=== PATIENT | female | born 1960 | race Caucasian/White ===

== ENCOUNTER → 2018-01-08 | Outpatient (CLI) | payer OTHER ==
[~2018-01-08] MED LIST: AMOX-358 PO; ASPI-586 PO; LEVO88TA54 PO; TRAM50TA2 PO
--- NOTE | 2018-01-08 14:25 | Diagnostic Imaging Report ---
INDICATION: Shortness of breath x2 months. Increasing severity. TECHNIQUE: Two view chest 02:39 p.m. CORRELATION STUDY: 02/25/2012. FINDINGS: The heart size, mediastinal configuration and pulmonary vasculature are within normal limits. Lung vásquez are hyperinflated with flattening of the diaphragms increased in retrosternal dimension. No infiltrate. Visualized osseous structures are unremarkable. IMPRESSION: 1. Hyperinflated lung vásquez. Negative for acute abnormality. Dictated by: Dictated on workstation # [id number]
== END ==
LOC: RAD 14:07
PROVIDERS: ATTEND Nurse Practitioner
DX: R06.02 Shortness of breath (principal); R91.8 Other nonspecific abnormal finding of lung field
CPT/HCPCS: 71046

== ENCOUNTER 2018-08-29 23:15 | Emergency (ER) | payer BC, OTHER ==
[~2018-08-29] VITALS: Ht 162.6 cm; Wt 41.7 kg
--- NOTE | 2018-08-30 00:10 | NUR ---
i have not got pt out of w/r yet. says tell pt we be glad to see you but we have no u/s or way to tell if you have a blood clot or not. i will do that when i get pt now.
--- NOTE | 2018-08-30 00:14 | NUR ---
pt here with " ". pt alert gcs 15. pt thinks she has blood clot traveling down left medial lower leg. been going on x 2 days. pt has areas marked with a pen. it appears its traveling down what appears to be a large vericose vein. pt c/o pain left leg 5-10. pt said she wants seen after i said what dr said. pt has h/o bllod clots and is on low dose asa daily.pt denies dyspnea and no acute sigh sof dyspnea noted. lungs equal cta bilaterally. pt denies injury. pt denies calf pain and calf area appears wnl andno pain there either. pt just has pain down the vein. positive pulse but weak left foot and both legs equally cool to touch. pt denies chest pain. done riley villatoro at 0022.
[2018-08-30] MEDS ORDERED: KETOROLAC 30 MG/ML VIAL ONE (00:40)
--- NOTE | 2018-08-30 00:48 | ED Lower Extremity ---
General Chief Complaint: Lower Extremity Stated Complaint: LEFT LEG BLOOD CLOTT Nursing Triage Note: leg pain x 2 days thinks she has a blood clot. Nursing Sepsis Screen: No Definite Risk Allergies and Home Medications Allergies Coded Allergies: No Known Drug Allergies (Unverified , 01/27/16) Home Medications Amoxicillin/Potassium Clav 1 Each Tablet, 1 EACH PO BID Prescribed by: CHRISTOPHE WEEKS on 01/27/162300 Aspirin 81 Mg Tablet.dr, 81 MG PO DAILY, (Reported) Levothyroxine Sodium 88 Mcg Tablet, 88 MCG PO DAILY, (Reported) Tramadol HCl 50 Mg Tablet, 50-100 MG PO Q6H PRN for PAIN Prescribed by: CHRISTOPHE WEEKS on 01/27/162300 Past Jxctntt-Wbesxx-Ynnmsx Hx Patient Social History Alcohol Use: Denies Use Recreational Drug Use: No Recent Foreign Travel: No Contact w/Someone Who Travel: No Recent Infectious Disease Expo: No Recent Hopitalizations: No Physical Abuse: No Sexual Abuse: No Past Medical History Hypothyroidsim Physical Exam Vital Signs Vital Signs - First Documented 08/30/18 00:14 Temp 98.1 Pulse 76 Resp 16 B/P (MAP) 115/61 (79) Pulse Ox 96 O2 Delivery Room Air Capillary Refill : Less Than 3 Seconds Height, Weight, BMI Height: 5'4.00" Weight: 92lbs. oz. 41.166273ma; BMI Method:Stated Progress/Results/Core Measures Results/Orders Vital Signs/I&O 08/30/18 00:14 Temp 98.1 Pulse 76 Resp 16 B/P (MAP) 115/61 (79) Pulse Ox 96 O2 Delivery Room Air Blood Pressure Mean: 79 Departure Impression Primary Impression: Left leg pain Additional Impressions: POSSIBLE THROMBOPHLEBITIS VARICOSE VEINS Disposition: HOME, SELF-CARE Condition: Stable Departure-Patient Inst. Referrals: THIERNO CURIEL MD (PCP/Family) Primary Care Physician Patient Instructions: Deep Vein Thrombosis (Blood Clots in the Legs) (DC) Add. Discharge Instructions: MOIST HEAT TO AREA AT 20 MINUTE INTERVALS INCREASE YOUR ASPIRIN TO 324 MG A DAY GO TO [facility] OR [facility] FOR FURTHER EVALUATION All discharge instructions reviewed with patient and/or family. Voiced understanding. ELIEL MANZANO DO Aug 30, 2018 00:48
[2018-08-30 00:54] VITALS: BP 0/0
--- NOTE | 2018-08-30 01:41 | NUR ---
someone else d/cd pt . i am merely doing the computer part of d/c.
--- NOTE | 2018-08-30 01:42 | NUR ---
i do not know if they did d/c vs
== END 2018-08-30 00:54 | disposition home or self-care (01) ==
LOC: EDUNIT# 23:15 → ER 23:18
DX: I83.92 Asymptomatic varicose veins of left lower extremity (principal); E03.9 Hypothyroidism, unspecified; Z79.01 Long term (current) use of anticoagulants
CPT/HCPCS: 99282

== ENCOUNTER → 2018-09-01 | Outpatient (CLI) | payer BC ==
--- NOTE | 2018-09-01 15:21 | Diagnostic Imaging Report ---
PROCEDURE: US left lower extremity venous. TECHNIQUE: Multiple real-time grayscale images were obtained over the left lower extremity in various projections. Additional duplex Doppler and color Doppler images were also obtained. INDICATION: Lump and pain in the medial left calf. FINDINGS: There is no evidence of left lower extremity DVT. Left lower extremity deep venous system shows normal compressibility with normal response to augmentation and Valsalva. There is a thrombosed superficial vein in the medial left calf at the area of palpable abnormality consistent with superficial thrombophlebitis. IMPRESSION: 1. No evidence of left lower extremity DVT. 2. Superficial thrombophlebitis medial left calf. Dictated by: Dictated on workstation # [id number]
== END ==
LOC: RAD 12:29
PROVIDERS: ATTEND Nurse Practitioner
DX: I80.02 Phlebitis and thrombophlebitis of superficial vessels of left lower extremity (principal)

== ENCOUNTER → 2018-10-30 | Outpatient (CLI) | payer BC ==
--- NOTE | 2018-10-30 13:27 | Diagnostic Imaging Report ---
Indication: Routine screening. Comparison is made with prior mammogram from 03/19/2008. 2-D and 3-D bilateral screening mammography was performed with CAD. Both breasts are heterogeneously dense, limiting the sensitivity of mammography. Breasts are smaller bilaterally, perhaps owing to prior breast reduction surgery. Clip in the outer left breast is again noted. There are benign calcifications bilaterally. No spiculated mass or malignant appearing microcalcifications are seen. Axillae are unremarkable. Impression: BI-RADS category 2 No mammographic features suspicious for malignancy are identified. ACR BI-RADS Category 2: Benign findings. Result letter will be mailed to the patient. Note: At least 10% of breast cancer is not imaged by mammography. Dictated by: Dictated on workstation # [id number]
== END ==
LOC: RAD 10:22
PROVIDERS: ATTEND Internal Medicine
DX: Z12.31 Encounter for screening mammogram for malignant neoplasm of breast (principal); Z98.890 Other specified postprocedural states
CPT/HCPCS: 77067

== ENCOUNTER → 2020-11-10 | Outpatient (CLI) | payer BC ==
[~2020-11-10] MED LIST changes: -TRAM50TA2 PO; +TRM50T PO
== END ==
LOC: LABNPT 08:54
PROVIDERS: ATTEND Internal Medicine
DX: Z20.822 Contact with and (suspected) exposure to COVID-19 (principal)
CPT/HCPCS: 87636

== ENCOUNTER → 2020-12-06 | Outpatient (CLI) | payer BC ==
--- NOTE | 2020-12-06 16:47 | Diagnostic Imaging Report ---
INDICATION: Routine screening. COMPARISON: 10/30/2018. TECHNIQUE: 2D and 3D bilateral screening mammography was performed with CAD. FINDINGS: Both breasts are heterogeneously dense, limiting the sensitivity of mammography. The parenchymal pattern appears stable. There are benign calcifications present. There Is a clip in the lateral left breast. No mass or malignant-appearing microcalcifications are seen. The axillae are unremarkable. IMPRESSION: No mammographic features suspicious for malignancy are identified. ACR BI-RADS Category 2: Benign findings. Result letter will be mailed to the patient. Note: At least 10% of breast cancer is not imaged by mammography. Dictated by: Dictated on workstation # [id number]
== END ==
LOC: RAD 12:45
PROVIDERS: ATTEND Nurse Practitioner Family
DX: Z12.31 Encounter for screening mammogram for malignant neoplasm of breast (principal); F17.200 Nicotine dependence, unspecified, uncomplicated
CPT/HCPCS: 77063; 77067

== ENCOUNTER → 2021-01-05 | Outpatient (CLI) | payer BC ==
[~2021-01-05] VITALS: Ht 160 cm; Wt 35.6 kg
[~2021-01-05] MED LIST changes: +ASPI-1238 PO; +LEVO88CA4 PO
== END | disposition home or self-care (01) ==
LOC: PREOP 10:20
PROVIDERS: ATTEND Surgery
DX: Z01.818 Encounter for other preprocedural examination (principal)

== ENCOUNTER 2021-01-06 11:37 | Day surgery (SDC) | payer BC ==
[2021-01-06] VITALS (14 sets, daily range): BP systolic 101–129; BP diastolic 50–60
[~2021-01-06] VITALS: Ht 130 cm; Wt 35.6 kg
[2021-01-06] MEDS ORDERED: NS IV 500 ML 500 ML ONE (11:51)
[2021-01-06] MEDS ORDERED: LIDOCAINE JELLY 2% 6 ML SYRINGE MM PRN (12:00)
[2021-01-06] MEDS ORDERED: NS IV 500 ML 500 ML IV PRN (12:00)
[2021-01-06] MEDS ORDERED: MIDAZOLAM 5 MG/5 ML (VERSED) VIAL IV ONE (12:00)
[2021-01-06] MEDS ORDERED: fentaNYL INJ 100 MCG/2 ML AMP IVP ONE (12:00)
--- NOTE | 2021-01-06 12:28 | Progress Note-Pre Operative ---
Pre-Operative Progress Note H&P Reviewed The H&P was reviewed, patient examined and no changes noted. Date Seen by Provider: Jan 06, 2021 Time Seen by Provider: 12:00 Date H&P Reviewed: Jan 06, 2021 Time H&P Reviewed: 12:00 Pre-Operative Diagnosis: screening, +cologaurd NICOLA CAROLINA MD Jan 06, 2021 12:28
--- NOTE | 2021-01-06 12:28 | Conscious Sedation/ASA ---
Conscious Sedation Pre-Proced Time 12:00 ASA Score 2 For ASA 3 and 4: Consider anesthesia and medical clearance. Also, for patients with a history of failed moderate sedation consider anesthesia. Airway Lungs Heart ASA score ASA 1: a normal healthy patient ASA 2: a patient with a mild systemic disease (mid diabetes, controlled hypertension, obesity ASA 3: a patient with a severe systemic disease that limits activity (angina, COPD, prior Myocardial infarction) ASA 4: a patient with an incapacitating disease that is a constant threat to life (CHF, renal failure) ASA 5: a moribund patient not expected to survive 24 hrs. (ruptured aneurysm) ASA 6: a declared brain- patient whose organs are being harvested. For emergent operations, add the letter E after the classification Mallampati Classification Grade 2 Sedation Plan Analgesia, Amnesia, Plan communicated to team members, Discussed options with patient/fam, Discussed risks with patient/fam The patient is an appropriate candidate to undergo the planned procedure, sedation, and anesthesia. The patient immediately re-assessed prior to indication. NICOLA CAROLINA MD Jan 06, 2021 12:28
--- NOTE | 2021-01-06 12:29 | Discharge Inst-Surgical ---
D/C Lap Instructions-GE Follow Up Appt in 2 weeks Activity as tolerated High Fiber Diet 25g or more per day Avoid Alcohol, Caffeine, Spicy [place] and Acid foods. Drink 64 fluid oz or more of fluids per day. Symptoms to Report: Fever over 101 degree F, Nausea/Vomiting If any problems/questions: Contact your physician or go to Emergency Room NICOLA CAROLINA MD Jan 06, 2021 12:29
--- NOTE | 2021-01-06 13:48 | Progress Note-Post Operative ---
Post-Operative Progess Note Surgeon (s)/Supply Chain Logistics Manager (s) Surgeon NICOLA CAROLINA MD Supply Chain Logistics Manager: none Pre-Operative Diagnosis screening, +cologaurd Post-Operative Diagnosis chronic stage 2 ext and int hemorrhoids. Procedure & Operative Findings Date of Procedure 01/06/21 Procedure Performed/Findings colonoscopy Anesthesia Type cs Estimated Blood Loss Estimated blood loss (mL): minimal Specimens/Packing Specimens Removed none NICOLA CAROLINA MD Jan 06, 2021 13:48
--- NOTE | 2021-01-06 22:52 | OPERATIVE REPORT ---
DATE OF SERVICE: 01/06/2021 ATTENDING PRIMARY CARE PHYSICIAN: Isidoro Mi MD PREOPERATIVE DIAGNOSIS: Screening colonoscopy with positive Cologuard test. POSTOPERATIVE DIAGNOSIS: Chronic stage II external and internal hemorrhoids. Remainder of the rectum and colon was normal. PROCEDURE: Colonoscopy. SURGEON: Nicola Carolina MD. ANESTHESIA: Conscious sedation. ESTIMATED BLOOD LOSS: Minimal. FINDINGS: Chronic stage II external and internal hemorrhoids. Remainder of the rectum and colon was normal. DISPOSITION: The patient tolerated the procedure well. INDICATIONS: The patient is a 60-year-old female referred over to us for a screening colonoscopy. She has not had a colonoscopy up to this point in her life. She did have a recent Cologuard test, which did come back positive. She states no visible red blood per rectum nor any dark tarry stools. She states that she does have occasional episodes of constipation. She does not report any family history of colon cancer. DESCRIPTION OF PROCEDURE: The patient was brought to the endoscopy suite, laid in the left lateral decubitus position. After adequate IV pain and sedative medications and conscious sedation anesthesia, a digital rectal examination was performed. There was a stage II chronic external and internal hemorrhoids, not actively edematous nor inflamed and no bleeding. Normal sphincter tone was felt and there were no palpable masses. The endoscope was then intubated into the anus and the rectum gently insufflated. The endoscope was then advanced through the valves of Simmons of the rectum with no polyps or any neoplasms identified. Through the sigmoid colon, no diverticulosis identified. The endoscope was then advanced and remainder of the descending, transverse and ascending colon to the cecum, which appeared normal with no polyps or any neoplasms identified. The endoscope was then slowly withdrawn while taking a second look and suctioning of residual air with no additional findings. The patient tolerated the procedure well. We will recommend the necessary lifestyle and diet accommodation including the incorporation of a high-fiber diet with a fiber supplement, which should equal or exceed 25 grams daily as well as significant amounts of water to promote soft stools on a daily basis. If she is asymptomatic, she does not need another colonoscopy for another 10 years. Job ID: [id number] DocumentID: [id number] Dictated Date: 01/06/2021 13:44:02 Digital Marketing Project Manager Date: 01/06/2021 22:51:49 Dictated By: NICOLA CAROLINA MD
== END 2021-01-06 14:30 | disposition home or self-care (01) ==
LOC: ENDO 11:37
PROVIDERS: ATTEND Surgery
DX: R19.5 Other fecal abnormalities (principal); J44.9 Chronic obstructive pulmonary disease, unspecified; E03.9 Hypothyroidism, unspecified; F17.210 Nicotine dependence, cigarettes, uncomplicated; K64.1 Second degree hemorrhoids; Z79.82 Long term (current) use of aspirin; Z79.890 Hormone replacement therapy

== ENCOUNTER 2022-03-06 08:49 | Observation (INO) | payer BC, OTHER ==
[~2022-03-06] VITALS: Ht 162 cm; Wt 40.5 kg
[2022-03-06] MEDS ORDERED: NS IV 500 ML 500 ML IV STA (08:58)
[2022-03-06] MEDS ORDERED: morphine INJ 10 MG/ML 1ML (SYR OR VIAL) IVP STA ×2 (08:58→09:25)
--- NOTE | 2022-03-06 08:58 | ED Respiratory ---
General Chief Complaint: Respiratory Problems Stated Complaint: SOA Source: patient Exam Limitations: no limitations History of Present Illness Date Seen by Provider: Mar 06, 2022 Time Seen by Provider: 08:54 Initial Comments Patient is a 61-year-old female history of COPD, not on home oxygen who presents to the emergency room with sudden onset of shortness of breath when she woke up this morning at around 7 AM. Patient has a slightly productive cough. Reports no fevers or chills. No known flu or COVID positive contacts. She is COVID vaccinated, not fully vaccinated. Denies chest pain, nausea vomiting. No problems with bowel or bladder. Has used multiple rounds of her albuterol at home prior to arrival. Moderate to severe distress with 2 word dyspnea. Room air sats 90%. Obvious increased work of breathing. Patient does wish to be intubated should that become necessary. No complaints of chest pain. Timing/Duration: this morning (0700) Severity: severe Prior Episodes/Possible Cause: occasional episodes Modifying Factors: Improves With Albuterol Inhaler, Improves With Albuterol Nebulizer Associated Symptoms: cough, shortness of breath Allergies and Home Medications Allergies Coded Allergies: No Known Drug Allergies (Unverified , 01/27/16) Patient Home Medication List Home Medication List Reviewed: Yes Aspirin (Aspirin EC) 81 Mg Tablet.dr, 81 MG PO DAILY, (Reported) Entered as Reported by: BARB MORTENSEN on 01/05/21 1357 Levothyroxine Sodium (Levothyroxine) 88 Mcg Capsule, 88 MCG PO DAILY, (Reported) Entered as Reported by: BARB MORTENSEN on 01/05/21 3157 Review of Systems Review of Systems Constitutional: see HPI EENTM: no symptoms reported Respiratory: cough, short of breath, wheezing Cardiovascular: no symptoms reported Gastrointestinal: no symptoms reported Genitourinary: no symptoms reported Musculoskeletal: no symptoms reported Skin: no symptoms reported All Other Systems Reviewed Negative Unless Noted: Yes Past Dajidwg-Kmzjhf-Ffjdgr Hx Immunizations Up To Date First/Initial COVID19 Vaccinat: 05/02/2020 Second COVID19 Vaccination [place]: 05/22/2020 Third COVID19 Vaccination Date: 05/02/2020 Seasonal Allergies Seasonal Allergies: No Past Medical History Surgeries: Yes (VARICOSE VEINS STRIPPED, R ARM ORIF) Orthopedic Respiratory: Yes COPD Cardiac: Yes (VARICOSE VEINS, THROMBOPHLEBITIS--IS UNCLEAR IF SUPERFICIAL OR DEEP ) Neurological: No Genitourinary: No Gastrointestinal: No Musculoskeletal: No Endocrine: Yes Hypothyroidsim Cancer: No Psychosocial: No Integumentary: No Blood Disorders: No Physical Exam Vital Signs - First Documented 03/06/22 08:52 Temp 35.1 Pulse 86 Resp 30 B/P (MAP) 167/80 (109) Pulse Ox 96 O2 Delivery OxyMask O2 Flow Rate 6.00 Capillary Refill : Height: 5'4.00" Weight: 92lbs. oz. 41.724163xo; 21.06 BMI Method:Stated General Appearance: moderate distress, thin Eyes: Bilateral Eye Normal Inspection, Bilateral Eye PERRL, Bilateral Eye EOMI HEENT: PERRL/EOMI Neck: normal inspection Respiratory: respiratory distress, decreased breath sounds, accessory muscle use, rhonchi (throughout; no active wheezing) Cardiovascular: regular rate, rhythm, other (2+ radial pulses) Extremities: normal range of motion, non-tender, normal inspection, no pedal edema, normal capillary refill Neurologic/Psychiatric: alert, normal mood/affect, oriented x 3 Skin: normal color, warm/dry Focused Exam Lactate Level 03/06/22 09:00: Lactic Acid Level 1.28 Lactic Acid Level Laboratory Tests Test 03/06/22 09:00 Lactic Acid Level 1.28 MMOL/L (0.50-2.00) Progress/Results/Core Measures Suspected Sepsis SIRS Temperature: Pulse: Respiratory Rate: Laboratory Tests 03/06/22 09:00: White Blood Count 9.1 Blood Pressure / Mean: 03/06/22 09:00: Lactic Acid Level 1.28 Laboratory Tests 03/06/22 09:00: Creatinine 0.75, INR Comment 0.9, Platelet Count 256, Total Bilirubin 0.4 Results/Orders Lab Results Laboratory Tests Test 03/06/22 09:00 03/06/22 09:05 03/06/22 09:10 Range/Units White Blood Count 9.1 4.3-11.0 10^3/uL Red Blood Count 4.63 3.80-5.11 10^6/uL Hemoglobin 14.8 11.5-16.0 g/dL Hematocrit 44 35-52 % Mean Corpuscular Volume 95 80-99 fL Mean Corpuscular Hemoglobin 32 25-34 pg Mean Corpuscular Hemoglobin Concent 34 32-36 g/dL Red Cell Distribution Width 14.1 10.0-14.5 % Platelet Count 256 130-400 10^3/uL Mean Platelet Volume 10.3 9.0-12.2 fL Immature Granulocyte % (Auto) 0 % Neutrophils (%) (Auto) 40 L 42-75 % Lymphocytes (%) (Auto) 43 12-44 % Monocytes (%) (Auto) 8 0-12 % Eosinophils (%) (Auto) 8 0-10 % Basophils (%) (Auto) 1 0-10 % Neutrophils # (Auto) 3.6 1.8-7.8 10^3/uL Lymphocytes # (Auto) 3.9 1.0-4.0 10^3/uL Monocytes # (Auto) 0.7 0.0-1.0 10^3/uL Eosinophils # (Auto) 0.7 H 0.0-0.3 10^3/uL Basophils # (Auto) 0.1 0.0-0.1 10^3/uL Immature Granulocyte # (Auto) 0.0 0.0-0.1 10^3/uL Prothrombin Time 12.8 12.2-14.7 SEC INR Comment 0.9 0.8-1.4 Activated Partial Thromboplast Time 27 24-35 SEC Sodium Level 143 135-145 MMOL/L Potassium Level 4.0 3.6-5.0 MMOL/L Chloride Level 104 98-107 MMOL/L Carbon Dioxide Level 29 21-32 MMOL/L Anion Gap 10 5-14 MMOL/L Blood Urea Nitrogen 13 7-18 MG/DL Creatinine 0.75 0.60-1.30 MG/DL Estimat Glomerular Filtration Rate 91 BUN/Creatinine Ratio 17 Glucose Level 86 70-105 MG/DL Lactic Acid Level 1.28 0.50-2.00 MMOL/L Calcium Level 9.2 8.5-10.1 MG/DL Corrected Calcium 9.3 8.5-10.1 MG/DL Total Bilirubin 0.4 0.1-1.0 MG/DL Aspartate Amino Transf (AST/SGOT) 22 5-34 U/L Alanine Aminotransferase (ALT/SGPT) 22 0-55 U/L Alkaline Phosphatase 72 40-136 U/L Total Protein 6.6 6.4-8.2 GM/DL Albumin 3.9 3.2-4.5 GM/DL Influenza Type A (RT-PCR) Not Detected Not Detecte Influenza Type B (RT-PCR) Not Detected Not Detecte SARS-CoV-2 RNA (RT-PCR) Not Detected Not Detecte Blood Gas Puncture Site RR Blood Gas Patient Temperature 35.1 Arterial Blood pH 7.42 7.37-7.43 Arterial Blood Partial Pressure CO2 44 35-45 MMHG Arterial Blood Partial Pressure O2 123 H 79-93 MMHG Arterial Blood HCO3 29 H 23-27 MMOL/L Arterial Blood Total CO2 30.1 21.0-31.0 MMOL/L Arterial Blood Oxygen Saturation 99 94-100 % Arterial Blood Base Excess 4.0 H -2.5-2.5 MMOL/L Elfego Test YES-POS Blood Gas Ventilator Setting NO Blood Gas Inspired Oxygen 5L My Orders Orders - SANDRA ROJAS MD Cbc With Automated Diff (03/06/22 08:58) Comprehensive Metabolic Panel (03/06/22 08:58) Blood Culture (03/06/22 08:58) Sputum Culture (03/06/22 08:58) Urinalysis (03/06/22 08:58) Urine Culture (03/06/22 08:58) Protime With Inr (03/06/22 08:58) Partial Thromboplastin Time (03/06/22 08:58) Chest 1 View, Ap/Pa Only (03/06/22 08:58) Ed Iv/Invasive Line Start (03/06/22 08:58) Ed Iv/Invasive Line Start (03/06/22 08:58) Vital Signs Adult Sepsis Patie Q15M (03/06/22 08:58) O2 (03/06/22 08:58) Remove Rings In Anticipation O (03/06/22 08:58) Lactic Acid Analyzer (03/06/22 08:58) Arterial Blood Gas (03/06/22 08:58) Communication For Respiratory (03/06/22 08:58) Covid 19 Inhouse Test (03/06/22 08:58) Influenza A And B By Pcr (03/06/22 08:58) Isolation Central Supply Req (03/06/22 08:58) Methylprednisolone Sod Succ (Solu-Medrol (03/06/22 09:00) Morphine Injection (Morphine Injection (03/06/22 08:58) Ns Iv 500 Ml (Sodium Chloride 0.9%) (03/06/22 08:58) Ondansetron Injection (Zofran Injectio (03/06/22 09:00) Albuterol/Ipra Inhalation Soln (Duoneb I (03/06/22 09:00) Svn Small Volume Nebulizer (03/06/22 08:58) Morphine Injection (Morphine Injection (03/06/22 09:25) Ceftriaxone 1 Gm Pre-Mix (Rocephin 1 Gm (03/06/22 12:00) Medications Given in ED Current Medications Medications Dose Ordered Sig/Mayte Route Start Time Stop Time Status Last Admin Dose Admin Albuterol/ Ipratropium 3 ml ONCE ONCE INH 03/06/22 09:00 03/06/22 09:02 DC 03/06/22 09:16 3 ML Ceftriaxone Sodium/Dextrose 50 ml @ 100 mls/hr ONCE ONCE IV 03/06/22 12:00 03/06/22 12:29 DC 03/06/22 12:11 100 MLS/HR Methylprednisolone Sodium Succinate 125 mg ONCE ONCE IVP 03/06/22 09:00 03/06/22 09:01 DC 03/06/22 09:31 125 MG Ondansetron HCl 4 mg ONCE ONCE IVP 03/06/22 09:00 03/06/22 09:01 DC 03/06/22 09:32 4 MG Vital Signs/I&O 03/06/22 03/06/22 03/06/22 08:52 09:16 09:35 Temp 35.1 Pulse 86 75 Resp 30 24 B/P (MAP) 167/80 (109) Pulse Ox 96 100 99 O2 Delivery OxyMask OxyMask O2 Flow Rate 6.00 8.00 40.00 Capillary Refill : Progress Note : Time: 12:32 Progress Note Patient seen initially with moderate to severe respiratory distress, 2 word dyspnea room air oxygen saturations 89/90%. Evaluation today includes septic work-up with ABG. Patient is found to have what looks like a right middle lobe early infiltrate. She was placed on BiPAP with morphine for air hunger. She was reevaluated at approximately 1025, moving more air feeling better. Advised her that we would continue to watch her for another 30 minutes and then possibly remove the BiPAP. She continued to improve. I reassessed her again at 1130 and her oxygen saturations slowly decreased down to about 87. She was no longer dyspneic with conversation. Definitely moving more air still with occasional rhonchi and some expiratory wheezes in the posterior lower lobes. Due to new need for oxygen and underlying COPD discussed admission with IV antibiotics and breathing treatments with the patient. She is agreeable. Her daughter is at the bedside. All questions are sought and answered. Diagnostic Imaging Diagonstic Imaging: Xray Plain Films/CT/US/NM/MRI: chest Comments [facility] [place], [place] NAME: APRIL BRIGGS [facility] REC#: [id number] PT STATUS: REG ER : 1960 PHYSICIAN: SANDRA ROJAS MD ADMIT DATE: 03/06/22/ER Draft Date of Exam:03/06/22 CHEST 1 VIEW, AP/PA ONLY EXAMINATION: CHEST 1 VIEW, AP/PA ONLY. INDICATION: Shortness of breath. COMPARISON: 01/08/2018. FINDINGS: Stable hyperinflated lungs. Hazy opacities in the medial aspect of the right lung base have developed. No pleural effusion or pneumothorax. Normal cardiomediastinal silhouette. IMPRESSION: 1. Medial right basilar pulmonary opacities are suspicious for pneumonia. 2. Advise followup PA and lateral chest radiographs in 4 weeks after appropriate medical management to ensure resolution. Dictated on workstation # [id number] Dict: 03/06/2242 Trans: 03/06/22 [id number] [id number] Interpreted by: KIAN STODDARD MD Electronically signed by: Critical Care Note Critical Care Start Time: 08:54 Stop Time: 11:45 Total Time (minutes) Critical care time 1 hour in the evaluation and management of this patient in respiratory distress. Time includes initial eval with review and interpretation of laboratory studies, chest x-ray. Time also includes management of BiPAP with oxygen supplementation and breathing treatments. Multiple reevaluations, review of previous medical records, discussion with hospitalist. Departure Communication (Admissions) Time/Spoke to Admitting Phy: 12:[address] Noble Impression Primary Impression: Acute exacerbation of chronic obstructive pulmonary disease (COPD) Additional Impressions: Pneumonia Qualified Codes: J18.9 - Pneumonia, unspecified organism Tobacco dependence Disposition: ADMITTED INPATIENT Condition: Improved Admissions Decision to Admit Reason: Admit from ER (General) Decision to Admit/Date: Mar 06, 2022 Time/Decision to Admit Time: 12:34 Departure-Patient Inst. Referrals: THIERNO CURIEL MD (PCP/Family) Primary Care Physician SANDRA ROJAS MD Mar 06, 2022 08:58
[2022-03-06] MEDS ORDERED: RT-ALBUTEROL/IPRATROPIUM 3 ML (DUONEB) VIAL INH ONE (09:00)
[2022-03-06] MEDS ORDERED: methylPREDNISolone 125 MG (Solu-MEDROL) VIAL IVP ONE (09:00)
[2022-03-06] MEDS ORDERED: ONDANSETRON 4 MG/2 ML (SDV) Z0FRAN IVP ONE (09:00)
[2022-03-06 09:15] LABS: BASOPHILS # (AUTO) 0.1 10^3/uL (0.0-0.1); BASOPHILS % (AUTO) 1 % (0-10); EOSINOPHILS # (AUTO) 0.7 10^3/uL (0.0-0.3); EOSINOPHILS % (AUTO) 8 % (0-10); HEMATOCRIT 44 % (35-52); HEMOGLOBIN 14.8 g/dL (11.5-16.0); LYMPHOCYTES # (AUTO) 3.9 10^3/uL (1.0-4.0); LYMPHOCYTES % (AUTO) 43 % (12-44); MEAN CORPUSCULAR HEMOGLOBIN 32 pg (25-34); MEAN CORPUSCULAR HGB CONC 34 g/dL (32-36); MEAN CORPUSCULAR VOLUME 95 fL (80-99); MEAN PLATELET VOLUME 10.3 fL (9.0-12.2); MONOCYTES # (AUTO) 0.7 10^3/uL (0.0-1.0); MONOCYTES % (AUTO) 8 % (0-12); NEUTROPHILS # (AUTO) 3.6 10^3/uL (1.8-7.8); NEUTROPHILS % (AUTO) 40 % (42-75); PLATELET COUNT 256 10^3/uL (130-400); WHITE BLOOD COUNT 9.1 10^3/uL (4.3-11.0)
[2022-03-06 09:17] LABS: ABG OXYGEN SATURATION 99 % (94-100); ABG PCO2 44 MMHG (35-45); ABG PH 7.42 (7.37-7.43); ABG PO2 123 MMHG (79-93); ABG TCO2 30.1 MMOL/L (21.0-31.0)
[2022-03-06 09:18] LABS: ALLENS TEST YES-POS; INSPIRED O2 5L; PATIENT TEMP 35.1; VENTILATOR NO
[2022-03-06 09:33] LABS: INR 0.9 (0.8-1.4); PROTHROMBIN TIME PATIENT 12.8 SEC (12.2-14.7)
[2022-03-06 09:35] VITALS: BP 119/64
[2022-03-06 09:38] LABS: ALBUMIN 3.9 GM/DL (3.2-4.5); BILIRUBIN,TOTAL 0.4 MG/DL (0.1-1.0); CALCIUM 9.2 MG/DL (8.5-10.1); CREATININE SERUM 0.75 MG/DL (0.60-1.30); TOTAL PROTEIN 6.6 GM/DL (6.4-8.2)
--- NOTE | 2022-03-06 09:47 | Diagnostic Imaging Report ---
EXAMINATION: CHEST 1 VIEW, AP/PA ONLY. INDICATION: Shortness of breath. COMPARISON: 01/08/2018. FINDINGS: Stable hyperinflated lungs. Hazy opacities in the medial aspect of the right lung base have developed. No pleural effusion or pneumothorax. Normal cardiomediastinal silhouette. IMPRESSION: 1. Medial right basilar pulmonary opacities are suspicious for pneumonia. 2. Advise followup PA and lateral chest radiographs in 4 weeks after appropriate medical management to ensure resolution. Dictated by: Dictated on workstation # [id number]
[2022-03-06] MEDS ORDERED: cefTRIAXone 1 GM PRE-MIX 50 ML IV ONE (12:00)
[2022-03-06 13:31] LABS: BILIRUBIN,URINE NEGATIVE (NEGATIVE); CLARITY,URINE CLEAR; COLOR,URINE YELLOW; GLUCOSE, URINE (UA) NEGATIVE (NEGATIVE); KETONES,URINE NEGATIVE (NEGATIVE); LEUKOCYTE ESTERASE ,URINE 1+ (NEGATIVE); NITRITE,URINE NEGATIVE (NEGATIVE); PROTEIN,URINE NEGATIVE (NEGATIVE)
[2022-03-06 13:38] LABS: BACTERIA,URINE NEGATIVE /HPF; RBC,URINE RARE /HPF; SQUAMOUS EPITHELIAL CELL,UR 0-2 /HPF; WBC,URINE 0-2 /HPF
[2022-03-06 16:44] VITALS: BP 130/73
[2022-03-06] MEDS ORDERED: CALCIUM CARBONATE 500 MG (TUMS) TAB.CHEW PO PRN (16:45)
[2022-03-06] MEDS ORDERED: MELATONIN 3 MG TABLET PO PRN (16:45)
[2022-03-06] MEDS ORDERED: diphenhydrAMINE 25 MG TAB (BENADRYL) PO PRN (16:45)
[2022-03-06] MEDS ORDERED: LACTULOSE SYRUP 10GM/15ML (ENULOSE) 30ML UDC PO PRN (16:45)
[2022-03-06] MEDS ORDERED: ACETAMINOPHEN 325 MG TABLET PO PRN (16:45)
[2022-03-06] MEDS ORDERED: ONDANSETRON 4 MG/2 ML (SDV) Z0FRAN IV PRN (16:45)
[2022-03-06] MEDS ORDERED: ANTACID SUSP 30 ML UDC (MYLANTA) PO PRN (16:45)
[2022-03-06] MEDS ORDERED: polyethylene glycoL POWDER 17 GM (MIRALAX) PACK PO PRN (16:45)
[2022-03-06] MEDS ORDERED: ONDANSETRON 4 MG (ZOFRAN) ORAL DISSOLVE TAB PO PRN (16:45)
[2022-03-06] MEDS ORDERED: BISACODYL 10 MG SUPP (DULCOLAX) PR PRN (16:45)
[2022-03-06] MEDS ORDERED: MILK OF MAGNESIA 400 MG/5 ML 30 ML UDC PO PRN (16:45)
[2022-03-06] MEDS ORDERED: diphenhydrAMINE 50 MG/ML INJ (BENADRYL) IVP PRN (16:45)
[2022-03-06] MEDS ORDERED: RT-ALBUTEROL/IPRATROPIUM 3 ML (DUONEB) VIAL INH PRN (17:00)
[2022-03-06] MEDS: RT-ALBUTEROL/IPRATROPIUM 3 ML (DUONEB) VIAL INH SCH ×2 (18:30→21:38)
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
[2022-03-06 20:17] VITALS: BP 114/57
[2022-03-06] MEDS: SENNOSIDES 8.6 MG (SENOKOT) TAB PO SCH (21:00)
[2022-03-06] MEDS: DOCUSATE SODIUM 100 MG (COLACE) CAP PO SCH (21:00)
[2022-03-07 00:02] VITALS: BP 102/55
[2022-03-07] MEDS: RT-ALBUTEROL/IPRATROPIUM 3 ML (DUONEB) VIAL INH SCH ×2 (02:32→07:58)
[2022-03-07 03:57] VITALS: BP 110/53
[2022-03-07 05:58] LABS: BASOPHILS # (AUTO) 0.1 10^3/uL (0.0-0.1); BASOPHILS % (AUTO) 1 % (0-10); EOSINOPHILS # (AUTO) 0.3 10^3/uL (0.0-0.3); EOSINOPHILS % (AUTO) 2 % (0-10); HEMATOCRIT 38 % (35-52); HEMOGLOBIN 12.7 g/dL (11.5-16.0); LYMPHOCYTES # (AUTO) 2.7 10^3/uL (1.0-4.0); LYMPHOCYTES % (AUTO) 21 % (12-44); MEAN CORPUSCULAR HEMOGLOBIN 32 pg (25-34); MEAN CORPUSCULAR HGB CONC 34 g/dL (32-36); MEAN CORPUSCULAR VOLUME 94 fL (80-99); MEAN PLATELET VOLUME 10.5 fL (9.0-12.2); MONOCYTES % (AUTO) 7 % (0-12); NEUTROPHILS # (AUTO) 8.8 10^3/uL (1.8-7.8); NEUTROPHILS % (AUTO) 69 % (42-75); PLATELET COUNT 216 10^3/uL (130-400); WHITE BLOOD COUNT 12.9 10^3/uL (4.3-11.0)
[2022-03-07 06:13] LABS: CALCIUM 8.8 MG/DL (8.5-10.1); CREATININE SERUM 0.73 MG/DL (0.60-1.30); POTASSIUM 3.7 MMOL/L (3.6-5.0)
[2022-03-07] MEDS ORDERED: LEVOTHYROXINE 88 MCG (LEVOTHORID) TAB PO SCH (06:30)
[2022-03-07] MEDS ORDERED: predniSONE 20 MG TAB PO SCH (07:00)
[2022-03-07] MEDS: SENNOSIDES 8.6 MG (SENOKOT) TAB PO SCH (07:40)
[2022-03-07] MEDS: DOCUSATE SODIUM 100 MG (COLACE) CAP PO SCH (07:40)
[2022-03-07 07:42] VITALS: BP 116/57
[2022-03-07] MEDS ORDERED: TIOTROPIUM BROMIDE (SPIRIVA) 5'S INHALER IH SCH (08:00)
[2022-03-07] MEDS ORDERED: UMECLIDINIUM BROMIDE (INCRUSE ELLIPTA) 7'S IH SCH (08:00)
[2022-03-07] MEDS ORDERED: LEVO75TA6 PO (10:33)
[2022-03-07] MEDS ORDERED: RT-ALBUINH INH (10:33)
[2022-03-07 11:19] VITALS: BP 120/59
[2022-03-07] MEDS ORDERED: UMEC1BLS IH (11:29)
[2022-03-07] MEDS ORDERED: PRED10TA22 PO (11:29)
--- NOTE | 2022-03-07 17:14 | Discharge Summary ---
Discharge Summary Hospital Course Problems/Dx: (1) Acute exacerbation of chronic obstructive pulmonary disease (COPD) Status: Acute (2) Tobacco dependence Status: Acute (3) Acute respiratory failure with hypoxia Status: Acute (4) Pulmonary cachexia due to COPD Status: Acute Hospital Course Date of Admission: Mar 06, 2022 at 16:08 Admission Diagnosis : Acute COPD exacerbation Family Physician/Provider: Isidoro Mi MD Date of Discharge: 03/07/22 Discharge Diagnosis: Acute COPD exacerbation Hospital Course: Julisa Zaidi is a 61 year old female with COPD, tobacco abuse, hypothyroidism, who presented with shortness of breath and was admitted with acute exacerbation of COPD. She was started on steroids and breathing treatments and improved. She was initially requiring supplemental oxygen. She underwent a home oxygen study with RT but did not qualify. She was given a prescription for Anoro Ellipta and Prednisone on discharge. She has been having difficulty affording her medications. She was encouraged to follow up with Dr. Mi, but may need assistance from [facility] if she can not afford her medications. Labs and Pending Lab Test: Laboratory Tests 03/07/22 05:40: White Blood Count 12.9H, Red Blood Count 4.02, Hemoglobin 12.7, Hematocrit 38, Mean Corpuscular Volume 94, Mean Corpuscular Hemoglobin 32, Mean Corpuscular Hemoglobin Concent 34, Red Cell Distribution Width 14.0, Platelet Count 216, Mean Platelet Volume 10.5, Immature Granulocyte % (Auto) 0, Neutrophils (%) (Auto) 69, Lymphocytes (%) (Auto) 21, Monocytes (%) (Auto) 7, Eosinophils (%) (Auto) 2, Basophils (%) (Auto) 1, Neutrophils # (Auto) 8.8H, Lymphocytes # (Auto) 2.7, Monocytes # (Auto) 1.0, Eosinophils # (Auto) 0.3, Basophils # (Auto) 0.1, Immature Granulocyte # (Auto) 0.0, Sodium Level 140, Potassium Level 3.7, Chloride Level 107, Carbon Dioxide Level 22, Anion Gap 11, Blood Urea Nitrogen 10, Creatinine 0.73, Estimat Glomerular Filtration Rate 94, BUN/Creatinine Ratio 14, Glucose Level 119H, Calcium Level 8.8 Microbiology 03/06/22 Urine Culture - Final, Complete NO GROWTH 03/06/22 Blood Culture - Preliminary, Resulted No growth Home Meds Active Anoro Ellipta 62.5-25 Mcg INH (Umeclidinium Brm/Vilanterol Tr) 62.5 Mcg-25 Mcg/Actuation Blst.w.dev 1 Each IH DAILY 90 Days Prednisone 10 Mg Tab.ds.pk 10 Mg PO DAILY Take 6 tabs(60mg)daily,decrease by 1 tab(10MG)daily. Reported Ventolin Hfa (Albuterol Sulfate) 1 Puff Puff 2 Puff INH Q4H PRN Levothyroxine Sodium 75 Mcg Tablet 75 Mcg PO DAILY Aspirin EC (Aspirin) 81 Mg Tablet.dr 81 Mg PO DAILY Assessment/Pt Instructions See instructions Discharge Planning: >30 minutes discharge planning Discharge Instructions Discharge Diet: No Restrictions Activity as Tolerated: Yes Discharge Physical Examination Vital Signs Vital Signs Date Time Temp Pulse Resp B/P (MAP) Pulse Ox O2 Delivery O2 Flow Rate FiO2 03/07/22 11:19 36.6 67 18 120/59 (79) 95 Nasal Cannula 3.00 General Appearance: No Apparent Distress, Chronically ill, Cachetic Respiratory: No Respiratory Distress, Decreased Breath Sounds, Wheezing Cardiovascular: Regular Rate, Rhythm, No Murmur Gastrointestinal: Normal Bowel Sounds, Soft Extremity: Normal Inspection, No Pedal Edema Skin: Normal Color, Warm/Dry Neurologic/Psychiatric: Alert, Normal Mood/Affect Allergies: Coded Allergies: No Known Drug Allergies (Unverified , 01/27/16) Discharge Summary Date of Admission Mar 06, 2022 at 16:08 Date of Discharge Mar 07, 2022 at 11:45 Discharge Date: Mar 07, 2022 Discharge Time: 11:45 Admission Diagnosis Acute COPD exacerbation Discharge Diagnosis COPD exacerbation Acute respiratory failure with hypoxia COPD cachexia Tobacco abuse (1) Acute exacerbation of chronic obstructive pulmonary disease (COPD) Status: Acute (2) Tobacco dependence Status: Acute (3) Acute respiratory failure with hypoxia Status: Acute (4) Pulmonary cachexia due to COPD Status: Acute PRANAV ROBERTO MD Mar 07, 2022 17:14
== END 2022-03-07 11:45 | disposition home or self-care (01) ==
LOC: EDUNIT# 08:49 → ER 08:54 → UNDOADMOB 16:08 → 4TH 16:08 → UNDODISOB 03-07 11:45
PROVIDERS: ADMIT Internal Medicine; ATTEND Internal Medicine
DX: J44.1 Chronic obstructive pulmonary disease with (acute) exacerbation (principal); J96.01 Acute respiratory failure with hypoxia; J18.9 Pneumonia, unspecified organism; R64 Cachexia; E03.9 Hypothyroidism, unspecified; F17.210 Nicotine dependence, cigarettes, uncomplicated; Z68.1 Body mass index [BMI] 19.9 or less, adult; Z79.899 Other long term (current) drug therapy
CPT/HCPCS: 36415; 71045; 80048; 80053; 81000; 82805; 83605; 85025; 85610; 85730; 87040; 87070; 87088; 87205; 87636; 94640; 94760; 94761; G0378

== ENCOUNTER 2022-03-21 07:59 | Observation (INO) | payer OTHER ==
[~2022-03-21] VITALS: Ht 162 cm; Wt 43.9 kg
[~2022-03-21 07:59] MED LIST changes: +LEVO75TA6 PO; +PRED10TA22 PO; +RT-ALBUINH INH; +UMEC1BLS IH
--- NOTE | 2022-03-21 08:06 | ED Respiratory ---
General Chief Complaint: Respiratory Problems Stated Complaint: SOA | HX OF COPD History of Present Illness Date Seen by Provider: Mar 21, 2022 Time Seen by Provider: 08:00 Initial Comments 61-year-old female with PMH of COPD, is here with complaints of shortness of breath which began half hour prior to coming to the ER. Patient came in by EMS. Patient has been cutting down her smoking, and now smokes only 2 cigarettes a day. Patient was admitted for pneumonia 10 days ago and was sent home with a steroid taper. She is not currently on antibiotics. Patient is able to speak in full sentences and becomes breathless at the end of her symptoms. Denies fever, chest pain, palpitations, abdominal pain, diarrhea, cough. Patient has been taking her inhalers at home but it was not helping. Allergies and Home Medications Allergies Coded Allergies: No Known Drug Allergies (Unverified , 01/27/16) Patient Home Medication List Home Medication List Reviewed: Yes Albuterol Sulfate (Ventolin Hfa) 1 Puff Puff, 2 PUFF INH Q4H PRN for SHORTNESS OF BREATH, (Reported) Entered as Reported by: KOFFI ORTIZ on 03/07/22 1033 Aspirin (Aspirin EC) 81 Mg Tablet.dr, 81 MG PO DAILY, (Reported) Entered as Reported by: BARB MORTENSEN on 01/05/21 1357 Levothyroxine Sodium (Levothyroxine Sodium) 75 Mcg Tablet, 75 MCG PO DAILY, (Reported) Entered as Reported by: KOFFI ORTIZ on 03/07/22 1033 Prednisone (Prednisone) 10 Mg Tab.ds.pk, 10 MG PO DAILY Prescribed by: PRANAV ROBERTO on 03/07/22 1129 Umeclidinium Brm/Vilanterol Tr (Anoro Ellipta 62.5-25 Mcg INH) 62.5 Mcg-25 Mcg/Actuation Blst.w.dev, 1 EACH IH DAILY Prescribed by: PRANAV ROBERTO on 03/07/22 1129 Review of Systems Review of Systems Constitutional: no symptoms reported EENTM: no symptoms reported Respiratory: short of breath, wheezing Cardiovascular: no symptoms reported Gastrointestinal: no symptoms reported Genitourinary: no symptoms reported Musculoskeletal: no symptoms reported Skin: no symptoms reported Psychiatric/Neurological: No Symptoms Reported Hematologic/Lymphatic: No Symptoms Reported Immunological/Allergic: no symptoms reported Past Ugmiwev-Sgwrba-Oagghy Hx Immunizations Up To Date First/Initial COVID19 Vaccinat: 05/02/2020 Second COVID19 Vaccination [place]: 05/22/2020 Third COVID19 Vaccination Date: 05/02/2020 Seasonal Allergies Seasonal Allergies: No Past Medical History Surgery/Hospitalization HX: COPD Surgeries: Yes (VARICOSE VEINS STRIPPED, R ARM ORIF) Orthopedic Respiratory: Yes COPD Cardiac: Yes (VARICOSE VEINS, THROMBOPHLEBITIS--IS UNCLEAR IF SUPERFICIAL OR DEEP ) Neurological: No Genitourinary: No Gastrointestinal: No Musculoskeletal: No Endocrine: Yes Hypothyroidsim Cancer: No Psychosocial: No Integumentary: No Blood Disorders: No Family Medical History No Pertinent Family Hx Physical Exam Vital Signs - First Documented 03/21/22 08:00 Temp 35.2 Pulse 84 Resp 32 B/P (MAP) 152/91 (111) Pulse Ox 100 O2 Delivery Nasal Cannula O2 Flow Rate 8.00 Capillary Refill : Height: 5'4.00" Weight: 92lbs. oz. 41.841586hw; 15.43 BMI Method:Stated General Appearance: moderate distress, thin HEENT: PERRL/EOMI, normal ENT inspection Neck: non-tender, full range of motion, supple Respiratory: decreased breath sounds (on the left compared to the right, although still present, no tracheal deviation), rhonchi, wheezing, expiration Cardiovascular: regular rate, rhythm, no edema Gastrointestinal: non tender, soft Extremities: normal range of motion Neurologic/Psychiatric: alert, oriented x 3 Skin: normal color Lymphatic: no adenopathy Progress/Results/Core Measures Suspected Sepsis SIRS Temperature: Pulse: Respiratory Rate: Laboratory Tests 03/21/22 08:11: White Blood Count 9.0 Blood Pressure / Mean: Laboratory Tests 03/21/22 08:11: Creatinine 0.74, INR Comment 0.9, Platelet Count 248, Total Bilirubin 0.4 Results/Orders Lab Results Laboratory Tests Test 03/21/22 08:11 03/21/22 08:19 03/21/22 09:38 Range/Units White Blood Count 9.0 4.3-11.0 10^3/uL Red Blood Count 4.50 3.80-5.11 10^6/uL Hemoglobin 14.3 11.5-16.0 g/dL Hematocrit 43 35-52 % Mean Corpuscular Volume 95 80-99 fL Mean Corpuscular Hemoglobin 32 25-34 pg Mean Corpuscular Hemoglobin Concent 33 32-36 g/dL Red Cell Distribution Width 14.2 10.0-14.5 % Platelet Count 248 130-400 10^3/uL Mean Platelet Volume 10.2 9.0-12.2 fL Immature Granulocyte % (Auto) 0 % Neutrophils (%) (Auto) 30 L 42-75 % Lymphocytes (%) (Auto) 48 H 12-44 % Monocytes (%) (Auto) 8 0-12 % Eosinophils (%) (Auto) 13 H 0-10 % Basophils (%) (Auto) 2 0-10 % Neutrophils # (Auto) 2.7 1.8-7.8 10^3/uL Lymphocytes # (Auto) 4.3 H 1.0-4.0 10^3/uL Monocytes # (Auto) 0.7 0.0-1.0 10^3/uL Eosinophils # (Auto) 1.1 H 0.0-0.3 10^3/uL Basophils # (Auto) 0.1 0.0-0.1 10^3/uL Immature Granulocyte # (Auto) 0.0 0.0-0.1 10^3/uL Neutrophils % (Manual) 35 % Lymphocytes % (Manual) 55 % Monocytes % (Manual) 1 % Eosinophils % (Manual) 7 % Basophils % (Manual) 2 % Band Neutrophils 0 % Blood Morphology Comment NORMAL Prothrombin Time 13.0 12.2-14.7 SEC INR Comment 0.9 0.8-1.4 Activated Partial Thromboplast Time 25 24-35 SEC D-Dimer 0.85 H 0.00-0.49 UG/ML Blood Gas Puncture Site R BRACH Blood Gas Patient Temperature 35.2 Arterial Blood pH 7.39 7.37-7.43 Arterial Blood Partial Pressure CO2 46 H 35-45 MMHG Arterial Blood Partial Pressure O2 193 H 79-93 MMHG Arterial Blood HCO3 28 H 23-27 MMOL/L Arterial Blood Total CO2 29.7 21.0-31.0 MMOL/L Arterial Blood Oxygen Saturation 100 94-100 % Arterial Blood Base Excess 3.2 H -2.5-2.5 MMOL/L Elfego Test YES-POS Blood Gas Ventilator Setting NO Blood Gas Inspired Oxygen 8 Sodium Level 142 135-145 MMOL/L Potassium Level 3.6 3.6-5.0 MMOL/L Chloride Level 106 98-107 MMOL/L Carbon Dioxide Level 26 21-32 MMOL/L Anion Gap 10 5-14 MMOL/L Blood Urea Nitrogen 11 7-18 MG/DL Creatinine 0.74 0.60-1.30 MG/DL Estimat Glomerular Filtration Rate 92 BUN/Creatinine Ratio 15 Glucose Level 89 70-105 MG/DL Calcium Level 8.8 8.5-10.1 MG/DL Corrected Calcium 9.0 8.5-10.1 MG/DL Magnesium Level 2.1 1.6-2.4 MG/DL Total Bilirubin 0.4 0.1-1.0 MG/DL Aspartate Amino Transf (AST/SGOT) 21 5-34 U/L Alanine Aminotransferase (ALT/SGPT) 17 0-55 U/L Alkaline Phosphatase 69 40-136 U/L Troponin I < 0.028 <0.028 NG/ML C-Reactive Protein High Sensitivity 0.03 0.00-0.50 MG/DL B-Type Natriuretic Peptide 12.8 <100.0 PG/ML Total Protein 6.2 L 6.4-8.2 GM/DL Albumin 3.7 3.2-4.5 GM/DL Procalcitonin 0.01 <0.10 NG/ML Influenza Type A (RT-PCR) Not Detected Not Detecte Influenza Type B (RT-PCR) Not Detected Not Detecte SARS-CoV-2 RNA (RT-PCR) Not Detected Not Detecte Urine Color YELLOW Urine Clarity CLEAR Urine pH 7.5 5-9 Urine Specific [place] 1.010 L 1.016-1.022 Urine Protein NEGATIVE NEGATIVE Urine Glucose (UA) NEGATIVE NEGATIVE Urine Ketones NEGATIVE NEGATIVE Urine Nitrite NEGATIVE NEGATIVE Urine Bilirubin NEGATIVE NEGATIVE Urine Urobilinogen 0.2 < = 1.0 MG/DL Urine Leukocyte Esterase 1+ H NEGATIVE Urine RBC (Auto) NEGATIVE NEGATIVE Urine RBC NONE /HPF Urine WBC 0-2 /HPF Urine Squamous Epithelial Cells 0-2 /HPF Urine Crystals NONE /LPF Urine Bacteria TRACE /HPF Urine Casts NONE /LPF Urine Mucus NEGATIVE /LPF Urine Culture Indicated NO Urine Opiates Screen NEGATIVE NEGATIVE Urine Oxycodone Screen NEGATIVE NEGATIVE Urine Methadone Screen NEGATIVE NEGATIVE Urine Propoxyphene Screen NEGATIVE NEGATIVE Urine Barbiturates Screen NEGATIVE NEGATIVE Ur Tricyclic Antidepressants Screen NEGATIVE NEGATIVE Urine Phencyclidine Screen NEGATIVE NEGATIVE Urine Amphetamines Screen NEGATIVE NEGATIVE Urine Methamphetamines Screen NEGATIVE NEGATIVE Urine Benzodiazepines Screen NEGATIVE NEGATIVE Urine Cocaine Screen NEGATIVE NEGATIVE Urine Cannabinoids Screen NEGATIVE NEGATIVE My Orders Orders - ANALISA BECKHAM MD Cbc With Automated Diff (03/21/22 08:07) Comprehensive Metabolic Panel (03/21/22 08:07) Bnp [place] (03/21/22 08:07) Blood Culture (03/21/22 08:07) Hs C Reactive Protein (03/21/22 08:07) Fibrin Degradation Products (03/21/22 08:07) Magnesium (03/21/22 08:07) Ekg Tracing (03/21/22 08:07) O2 (03/21/22 08:07) Ed Iv/Invasive Line Start (03/21/22 08:07) Sputum Culture (03/21/22 08:07) Monitor-Rhythm Ecg Trace Only (03/21/22 08:07) Albuterol/Ipra Inhalation Soln (Duoneb I (03/21/22 08:15) Methylprednisolone Sod Succ (Solu-Medrol (03/21/22 08:07) Chest 1 View, Ap/Pa Only (03/21/22 08:07) Svn Small Volume Nebulizer (03/21/22 08:07) Procalcitonin (Pct) (03/21/22 08:09) Protime With Inr (03/21/22 08:09) Partial Thromboplastin Time (03/21/22 08:09) Troponin I [place] (03/21/22 08:09) Covid 19 Inhouse Test (03/21/22 08:10) Influenza A And B By Pcr (03/21/22 08:10) Drug Screen Stat (Urine) (03/21/22 08:11) Ua Culture If Indicated (03/21/22 08:11) Arterial Blood Gas (03/21/22 08:11) Manual Differential (03/21/22 08:11) Albuterol/Ipra Inhalation Soln (Duoneb I (03/21/22 08:30) Svn Small Volume Nebulizer (03/21/22 08:27) Ct Angio Chest W (Ro/Pe) (03/21/22 08:44) Ct Angio Chest W (03/21/22 ) Iohexol Injection (Omnipaque 350 Mg/Ml 1 (03/21/22 09:15) Received Contrast (Hold Metformin- Contr (03/21/22 09:15) Ns (Ivpb) (Sodium Chloride 0.9% Ivpb Bag (03/21/22 09:15) Azithromycin Injection (Zithromax Inject (03/21/22 11:45) Medications Given in ED Current Medications Medications Dose Ordered Sig/Mayte Route Start Time Stop Time Status Last Admin Dose Admin Albuterol/ Ipratropium 3 ml ONCE ONCE INH 03/21/22 08:30 03/21/22 08:31 DC 03/21/22 08:46 3 ML Iohexol 100 ml ONCE ONCE IV 03/21/22 09:15 03/21/22 09:20 DC 03/21/22 09:22 46 ML Sodium Chloride 100 ml ONCE ONCE IV 03/21/22 09:15 03/21/22 09:20 DC 03/21/22 09:22 80 ML Vital Signs/I&O 03/21/22 03/21/22 03/21/22 03/21/22 08:00 08:00 08:19 08:46 Temp 35.2 Pulse 84 80 71 Resp 32 21 18 B/P (MAP) 152/91 (111) Pulse Ox 100 100 100 97 O2 Delivery Nasal Cannula Nasal Cannula O2 Flow Rate 8.00 8.00 50.00 21.00 Capillary Refill : Progress Note : Progress Note 1. ACUTE COPD EXACERBATION: - CXR: COPD picture - Labs: Unremarkable - COVID test/ Rapid Flu Test: negative - Duo Neb x 2 - Solumedrol 125mg iv STAT -Discussed with hospitalist and accepted for ICU observation admission 2. PNEUMONIA/ ELEVATED D-DIMER: - D-dimer is 0.85 - CTA CHEST : Negative for PE, but shows groundglass opacification involving the right lower lobe and left upper lobe, emphysema. -Azithromycin 500mg iv STAT Diagnostic Imaging Diagonstic Imaging: Xray, CT Plain Films/CT/US/NM/MRI: chest Comments [facility]. [place], [place] NAME: APRIL BRIGGS Rebekah MED REC#: [id number] PT STATUS: REG ER : 1960 PHYSICIAN: ANALISA BECKHAM MD ADMIT DATE: 03/21/22/ER Draft Date of Exam:03/21/22 CT ANGIO CHEST W Clinical indication: Patient with shortness of air. Rule out PE. Exam: CT angiogram of the chest performed with 46 cc Omnipaque 350 IV contrast. Coronal and oblique MIP images of the vasculature were created to better evaluate anatomy. Auto Exposure Controls were utilized during the CT exam to meet ALARA standards for radiation dose reduction. Comparison: Chest x-ray dated 01/08/2018. Findings: There is no evidence of pulmonary embolism. There is no thoracic aortic aneurysm. There is no significant contrast opacification in the thoracic aorta. There is diffuse centrilobular emphysematous lung disease. There are small areas of groundglass opacification involving the left lung apex and anterior right lower lobe. There is a 5 mm nodule involving the superior segment of the left lower lobe. There is no pleural effusion pneumothorax. There is no mediastinal or axillary lymphadenopathy. Mediastinal structures and heart shows no significant abnormality. The visualized portions of the upper abdominal structures are unremarkable. There are degenerative spurs involving the thoracic spine. Impression: 1: There is no evidence of pulmonary embolism. There is no thoracic aortic aneurysm. 2: There is emphysematous lung disease. 3: There are small areas of groundglass opacification involving the right lower lobe and left upper lobe. Infectious inflammatory process may be considered. 4: There is a 5 mm nodule involving the superior segment left lower lobe. Follow-up chest CT scan in 6 months is suggested to evaluate for stability. Dictated on workstation # [id number] Dict: 03/21/22929 Trans: 03/21/22 0944 [id number] Interpreted by: RYLEE ROLDAN MD Electronically signed by: [facility]. [place], [place] NAME: APRIL BRIGGS [facility] REC#: [id number] PT STATUS: REG ER : 1960 PHYSICIAN: ANALISA BECKHAM MD ADMIT DATE: 03/21/22/ER Draft Date of Exam:03/21/22 CHEST 1 VIEW, AP/PA ONLY INDICATION: Shortness of breath. Compared 03/06/2022. FINDINGS: Air trapping and COPD chronic. No consolidation, failure pattern, effusion or pneumothorax. No change. IMPRESSION: Stable chronic findings. Dictated on workstation # [id number] Dict: 03/21/22 0838 Trans: 03/21/22 44 [facility] [id number] Interpreted by: ELENA THOMAS Electronically signed by: Departure Communication (Admissions) Time/Spoke to Admitting Phy: 12:[address] Roberto and accepted for admission to ICU Impression Primary Impression: Acute exacerbation of chronic obstructive pulmonary disease (COPD) Additional Impressions: Pneumonia of both lower lobes Elevated d-dimer Disposition: HOME, SELF-CARE Condition: Improved Admissions Decision to Admit Reason: Admit from ER (General) Decision to Admit/Date: Mar 21, 2022 Time/Decision to Admit Time: 12:00 Departure-Patient Inst. Referrals: THIERNO CURIEL MD (PCP/Family) Primary Care Physician ANALISA BECKHAM MD Mar 21, 2022 08:06
[2022-03-21] MEDS ORDERED: methylPREDNISolone 125 MG (Solu-MEDROL) VIAL IV STA (08:07)
[2022-03-21 08:15] LABS: BASOPHILS # (AUTO) 0.1 10^3/uL (0.0-0.1); BASOPHILS % (AUTO) 2 % (0-10); EOSINOPHILS # (AUTO) 1.1 10^3/uL (0.0-0.3); EOSINOPHILS % (AUTO) 13 % (0-10); HEMATOCRIT 43 % (35-52); HEMOGLOBIN 14.3 g/dL (11.5-16.0); LYMPHOCYTES # (AUTO) 4.3 10^3/uL (1.0-4.0); LYMPHOCYTES % (AUTO) 48 % (12-44); MEAN CORPUSCULAR HEMOGLOBIN 32 pg (25-34); MEAN CORPUSCULAR HGB CONC 33 g/dL (32-36); MEAN CORPUSCULAR VOLUME 95 fL (80-99); MEAN PLATELET VOLUME 10.2 fL (9.0-12.2); MONOCYTES # (AUTO) 0.7 10^3/uL (0.0-1.0); MONOCYTES % (AUTO) 8 % (0-12); NEUTROPHILS # (AUTO) 2.7 10^3/uL (1.8-7.8); NEUTROPHILS % (AUTO) 30 % (42-75); PLATELET COUNT 248 10^3/uL (130-400)
[2022-03-21] MEDS ORDERED: RT-ALBUTEROL/IPRATROPIUM 3 ML (DUONEB) VIAL INH ONE ×2 (08:15→08:30)
[2022-03-21 08:19] VITALS: BP 137/74
[2022-03-21 08:22] LABS: ABG BASE EXCESS 3.2 MMOL/L (-2.5-2.5); ABG OXYGEN SATURATION 100 % (94-100); ABG PCO2 46 MMHG (35-45); ABG PH 7.39 (7.37-7.43); ABG PO2 193 MMHG (79-93); ABG TCO2 29.7 MMOL/L (21.0-31.0)
[2022-03-21 08:23] LABS: ALLENS TEST YES-POS; INSPIRED O2 8; PATIENT TEMP 35.2; VENTILATOR NO
[2022-03-21 08:26] LABS: ALBUMIN 3.7 GM/DL (3.2-4.5); CHLORIDE 106 MMOL/L (98-107); POTASSIUM 3.6 MMOL/L (3.6-5.0); SODIUM 142 MMOL/L (135-145)
[2022-03-21 08:28] LABS: CALCIUM 8.8 MG/DL (8.5-10.1)
[2022-03-21 08:29] LABS: GLUCOSE 89 MG/DL (70-105); TOTAL PROTEIN 6.2 GM/DL (6.4-8.2)
[2022-03-21 08:30] LABS: CARBON DIOXIDE 26 MMOL/L (21-32)
[2022-03-21 08:31] LABS: BILIRUBIN,TOTAL 0.4 MG/DL (0.1-1.0)
[2022-03-21 08:32] LABS: ALKALINE PHOSPHATASE 69 U/L (40-136)
[2022-03-21 08:33] LABS: CREATININE SERUM 0.74 MG/DL (0.60-1.30); GFR ESTIMATED 92
[2022-03-21 08:34] LABS: BUN/CREATININE RATIO 15
[2022-03-21 08:35] LABS: ALANINE AMINOTRANSFERASE 17 U/L (0-55); FIBRIN DEGRADATION PRODUCTS 0.85 UG/ML (0.00-0.49); INR 0.9 (0.8-1.4); MAGNESIUM 2.1 MG/DL (1.6-2.4)
[2022-03-21 08:42] LABS: BAND NEUTROPHILS 0 %; BASOPHILS % (MANUAL) 2 %; EOSINOPHILS % (MANUAL) 7 %; LYMPHOCYTES % (MANUAL) 55 %; MONOCYTES % (MANUAL) 1 %; NEUTROPHILS % (MANUAL) 35 %; RBC MORPH NORMAL
--- NOTE | 2022-03-21 08:44 | Diagnostic Imaging Report ---
INDICATION: Shortness of breath. Compared 03/06/2022. FINDINGS: Air trapping and COPD chronic. No consolidation, failure pattern, effusion or pneumothorax. No change. IMPRESSION: Stable chronic findings. Dictated by: Dictated on workstation # [id number]
[2022-03-21 08:46] VITALS: BP 124/66
[2022-03-21] MEDS ORDERED: HOLD METFORMIN - RECEIVED CONTRAST 20 ML VIAL IV SCH (09:15)
[2022-03-21] MEDS ORDERED: IOHEXOL 350 MG/ML 100 ML (OMNIPAQUE 350) VIAL IV ONE (09:15)
[2022-03-21] MEDS ORDERED: NS 100 ML (IVPB) BAG IV ONE (09:15)
--- NOTE | 2022-03-21 09:45 | Diagnostic Imaging Report ---
Clinical indication: Patient with shortness of air. Rule out PE. Exam: CT angiogram of the chest performed with 46 cc Omnipaque 350 IV contrast. Coronal and oblique MIP images of the vasculature were created to better evaluate anatomy. Auto Exposure Controls were utilized during the CT exam to meet ALARA standards for radiation dose reduction. Comparison: Chest x-ray dated 01/08/2018. Findings: There is no evidence of pulmonary embolism. There is no thoracic aortic aneurysm. There is no significant contrast opacification in the thoracic aorta. There is diffuse centrilobular emphysematous lung disease. There are small areas of groundglass opacification involving the left lung apex and anterior right lower lobe. There is a 5 mm nodule involving the superior segment of the left lower lobe. There is no pleural effusion pneumothorax. There is no mediastinal or axillary lymphadenopathy. Mediastinal structures and heart shows no significant abnormality. The visualized portions of the upper abdominal structures are unremarkable. There are degenerative spurs involving the thoracic spine. Impression: 1: There is no evidence of pulmonary embolism. There is no thoracic aortic aneurysm. 2: There is emphysematous lung disease. 3: There are small areas of groundglass opacification involving the right lower lobe and left upper lobe. Infectious inflammatory process may be considered. 4: There is a 5 mm nodule involving the superior segment left lower lobe. Follow-up chest CT scan in 6 months is suggested to evaluate for stability. Dictated by: Dictated on workstation # [id number]
[2022-03-21 10:01] LABS: BILIRUBIN,URINE NEGATIVE (NEGATIVE); CLARITY,URINE CLEAR; COLOR,URINE YELLOW; GLUCOSE, URINE (UA) NEGATIVE (NEGATIVE); KETONES,URINE NEGATIVE (NEGATIVE); LEUKOCYTE ESTERASE ,URINE 1+ (NEGATIVE); NITRITE,URINE NEGATIVE (NEGATIVE); PH,URINE 7.5 (5-9); PROTEIN,URINE NEGATIVE (NEGATIVE)
[2022-03-21 10:12] LABS: BACTERIA,URINE TRACE /HPF; SQUAMOUS EPITHELIAL CELL,UR 0-2 /HPF; WBC,URINE 0-2 /HPF
[2022-03-21 10:15] LABS: AMPHETAMINE SCREEN, URINE NEGATIVE (NEGATIVE); BARBITURATE SCREEN URINE NEGATIVE (NEGATIVE); BENZODIAZEPINES SCREEN URINE NEGATIVE (NEGATIVE); CANNABINOID SCREEN, URINE NEGATIVE (NEGATIVE); COCAINE SCREEN URINE NEGATIVE (NEGATIVE); METHADONE STAT NEGATIVE (NEGATIVE); OPIATE SCREEN URINE NEGATIVE (NEGATIVE); OXYCODONE STAT NEGATIVE (NEGATIVE); PROPOXYPHENE STAT NEGATIVE (NEGATIVE); TRICYCLIC ANTIDEPRESSANTS SCRE NEGATIVE (NEGATIVE)
[2022-03-21] MEDS ORDERED: AZITHROMYCIN INJECTION 500 MG in NS (IVPB) 250 ML IV ONE (11:45)
[2022-03-21] MEDS ORDERED: BISACODYL 10 MG SUPP (DULCOLAX) PR PRN (13:30)
[2022-03-21] MEDS ORDERED: MILK OF MAGNESIA 400 MG/5 ML 30 ML UDC PO PRN (13:30)
[2022-03-21] MEDS ORDERED: ONDANSETRON 4 MG/2 ML (SDV) Z0FRAN IV PRN (13:30)
[2022-03-21] MEDS ORDERED: diphenhydrAMINE 25 MG TAB (BENADRYL) PO PRN (13:30)
[2022-03-21] MEDS ORDERED: diphenhydrAMINE 50 MG/ML INJ (BENADRYL) IVP PRN (13:30)
[2022-03-21] MEDS ORDERED: CALCIUM CARBONATE 500 MG (TUMS) TAB.CHEW PO PRN (13:30)
[2022-03-21] MEDS ORDERED: ONDANSETRON 4 MG (ZOFRAN) ORAL DISSOLVE TAB PO PRN (13:30)
[2022-03-21] MEDS ORDERED: ACETAMINOPHEN 325 MG TABLET PO PRN (13:30)
[2022-03-21] MEDS ORDERED: polyethylene glycoL POWDER 17 GM (MIRALAX) PACK PO PRN (13:30)
[2022-03-21] MEDS ORDERED: MELATONIN 3 MG TABLET PO PRN (13:30)
[2022-03-21] MEDS ORDERED: ENOXAPARIN 40 MG/0.4 ML (LOVENOX) SYR SC SCH (13:30)
[2022-03-21] MEDS ORDERED: ANTACID SUSP 30 ML UDC (MYLANTA) PO PRN (13:30)
[2022-03-21] MEDS ORDERED: LACTULOSE SYRUP 10GM/15ML (ENULOSE) 30ML UDC PO PRN (13:30)
[2022-03-21] MEDS ORDERED: PIPERACILLIN SODIUM/TAZOBACTAM 4.5 GM in NS (IVPB) 100 ML IV NR (14:00)
[2022-03-21] MEDS ORDERED: ENOXAPARIN INJECTION 30 MG/0.3 ML SYR SC SCH (14:00)
[2022-03-21 15:58] VITALS: BP 99/54
[2022-03-21] MEDS ORDERED: RT-ALBUTEROL/IPRATROPIUM 3 ML (DUONEB) VIAL INH PRN (16:15)
--- NOTE | 2022-03-21 17:24 | Tele-ICU Consult ---
History of Present Illness History of Present Illness Date Seen by Provider: Mar 21, 2022 Time Seen by Provider: 17:23 Date of Admission (Tele-ICU Physician , consultation as per request of PCP Service provided via interactive audio and video telecommunications E-CARE system to a patient admitted to ICU bed in [facility]. Available chart/ vitals / labs / Images reviewed H&P is from ER notes Patient's information available about PMH, Shx, Fhx allergy reviewed inEMR. ROS as per chart and RN report Now in ICU, hemodynamically stable Video assessment done using teleICU camera, rest of exam as per RN Discussed with RN. Consultants: Hospital course: admitted for pneumonia 10 days ago and was sent home with a steroid taper (03/21) 61 y F from ER with dyspnea (hx COPD and smoker) admit COPD exac CT neg PE A/P Acute resp failure ( no PE on CT ) - off NIPPV now - monitor AECOPD - nebs , -steroids SM 60 q 6 ( s/p d/c 03/07 for AECOPD , given a prescription for Anoro Ellipta and Prednisone on discharge Possible PNA - Zosyn started Lines : , (Central Line Necessity Reviewed) Choi: OG: Nutrition: Analgesia: Anxiety/ delirium VTE Prophylaxis: do 30 Stress Ulcer Prophylaxis: Glycemic Control: Plans in collaboration with bedside consultants and IM MDs. Discussed with RN to reach out if any questions or concerns A total of 15 minutes of critical care time was devoted to this patient today, required to treat and/or prevent further deterioration of critical care condition ( as above ) . I am remotely monitoring this patient from another state. I am unable to do the bedside exam, and history/physical and pertinent information is taken from other notes in the computer and bedside staff. . Allergies and Home Medications Allergies Coded Allergies: No Known Drug Allergies (Unverified , 01/27/16) Home Medications Albuterol Sulfate 1 Puff Puff, 2 PUFF INH Q4H PRN for SHORTNESS OF BREATH, (Reported) Aspirin 81 Mg Tablet.dr, 81 MG PO DAILY, (Reported) Levothyroxine Sodium 75 Mcg Tablet, 75 MCG PO DAILY, (Reported) Umeclidinium Brm/Vilanterol Tr 62.5 Mcg-25 Mcg/Actuation Blst.w.dev, 1 EACH IH DAILY Prescribed by: PRANAV ROBERTO on 03/07/22 1129 Past Medical/Social/Family Hx Patient Social History Tobacco Use?: Yes Tobacco type used: Cigarettes Smoking Status: Current Everyday Smoker Smokeless Tobacco Frequency: Current Everyday User Use of E-Cig and/or Vaping dev: No Substance use?: No Alcohol Use?: Yes Alcohol Frequency: Rarely Pt stated abuse/neglect: No Immunizations Up To Date Influenza Vaccine Up-to-Date: Yes; Up-to-Date First/Initial COVID19 Vaccinat: 05/02/2020 Second COVID19 Vaccination [place]: 05/22/2020 Current Status status: No Advance Directives: No Communicates: Verbally Primary Language: Slovenian Preferred Spoken Language: Slovenian Is interpretation needed?: No Implanted or Applied Medical D: None Review of Systems Constitutional: see HPI Focused Exam Height, Weight, BMI Height: 5'4.00" Weight: 92lbs. oz. 41.115913as; 16.00 BMI Method:Stated Exam Exam Patient acknowledged, consented, and participated in this virtual visit which was conducted using real time audio/video Vital Signs Date Time Temp Pulse Resp B/P (MAP) Pulse Ox O2 Delivery O2 Flow Rate FiO2 03/21/22 16:00 62 23 87/49 (62) 97 Nasal Cannula 3.00 03/21/22 16:00 36.3 03/21/22 15:58 35.2 75 98 03/21/22 15:47 98 Nasal Cannula 3.00 03/21/22 15:24 62 03/21/22 15:18 Nasal Cannula 3.00 03/21/22 15:00 65 65 118/68 (85) 97 Nasal Cannula 3.00 03/21/22 13:32 75 25 99/54 98 NIV Bilevel 03/21/22 08:46 71 18 97 21.00 03/21/22 08:19 80 21 100 50.00 03/21/22 08:00 35.2 84 32 152/91 (111) 100 Nasal Cannula 8.00 03/21/22 08:00 100 Nasal Cannula 8.00 Height & Weight Height: 5'4.00" Weight: 92lbs. oz. 41.186856et; 16.00 BMI Method:Stated General Appearance: No Apparent Distress Gastrointestinal: non tender, soft Results Lab Laboratory Tests 03/21/22 08:11 Assessment/Plan Assessment/Plan 1 ANABELL FAUSTIN MD Mar 21, 2022 17:24
[2022-03-21] MEDS: methylPREDNISolone 125 MG (Solu-MEDROL) VIAL IVP SCH ×2 (17:48→23:37)
[2022-03-21] MEDS: NICOTINE 14 MG (NICODERM) PATCH TD SCH (18:37)
[2022-03-21] MEDS: DOCUSATE SODIUM 100 MG (COLACE) CAP PO SCH (19:48)
[2022-03-21] MEDS: SENNOSIDES 8.6 MG (SENOKOT) TAB PO SCH (19:48)
[2022-03-21] MEDS: PIPERACILLIN SODIUM/TAZOBACTAM 4.5 GM in NS (IVPB) 100 ML IV SCH (20:25)
--- NOTE | 2022-03-21 21:17 | History & Physical-Hospitalist ---
History of Present Illness HPI/Chief Complaint Julisa Zaidi is a 61 year old female with PMH COPD, tobacco abuse, cachexia, who presented with shortness of breath. She went to bed last night and was reportedly coughing all night. She says it was a dry cough. She denies fevers and chills. She was getting anxious due to her shortness of breath. She denies chest pain. She denies nausea and vomiting. She has been using her inhalers. She does not have a nebulizer. Source: patient, family Exam Limitations: no limitations Date Seen 03/21/22 Time Seen by a Provider: 17:45 Attending Physician Isidoro Mi MD PCP Admitting Physician: Pranav Roberto MD Attending Physician: Pranav Roberto MD Referring Physician Date of Admission Mar 21, 2022 at 12:10 Home Medications & Allergies Home Medications Reviewed patient Home Medication Reconciliation performed by pharmacy medication reconciliations denture laboratory technician and/or nursing. Patients Allergies have been reviewed. Allergies Allergies Coded Allergies No Known Drug Allergies ([id number]/28/16) Past Aqnmdsg-[id number]-[id number] Hx Patient Social History Tobacco Use?: Yes Tobacco type used: Cigarettes Smoking Status: Current Everyday Smoker Smokeless Tobacco Frequency: Current Everyday User Use of E-Cig and/or Vaping dev: No Substance use?: No Alcohol Use?: Yes Alcohol Frequency: Rarely Pt feels they are or have been: No Immunizations Up To Date First/Initial COVID19 Vaccinat: 05/02/2020 Second COVID19 Vaccination [place]: 05/22/2020 Seasonal Allergies Seasonal Allergies: No Current Status status: No Advance Directives: No Communicates: Verbally Primary Language: Austrian Preferred Spoken Language: Austrian Is interpretation needed?: No Implanted or Applied Medical D: None Past Medical History Surgeries: Orthopedic COPD Hypothyroidsim Blood Disorders: No Family Medical History No Pertinent Family Hx Review of Systems Constitutional: no symptoms reported EENTM: no symptoms reported Respiratory: cough, short of breath Cardiovascular: no symptoms reported Gastrointestinal: no symptoms reported Physical Exam Physical Exam Vital Signs Vital Signs - First Documented 03/21/22 08:00 Temp 35.2 Pulse 84 Resp 32 B/P (MAP) 152/91 (111) Pulse Ox 100 O2 Delivery Nasal Cannula O2 Flow Rate 8.00 Capillary Refill : Less Than 3 Seconds Height, Weight, BMI Height: 5'4.00" Weight: 92lbs. oz. 41.004828cy; 16.00 BMI Method:Stated General Appearance: No Apparent Distress, Chronically ill, Cachetic HEENT: PERRL/EOMI, Pharynx Normal Neck: Normal Inspection, Supple Respiratory: No Respiratory Distress, Decreased Breath Sounds Cardiovascular: Regular Rate, Rhythm, No Murmur Gastrointestinal: Normal Bowel Sounds, Soft Extremity: Normal Inspection, No Pedal Edema Neurologic/Psychiatric: Alert, Normal Mood/Affect Skin: Normal Color, Warm/Dry Results Results/Procedures Labs Laboratory Tests 03/21/22 08:11 Patient resulted labs reviewed. Imaging: Reviewed Imaging Report Assessment/Plan Admission Diagnosis Acute COPD exacerbation Admission Status: Observation Reason for Inpatient Admission: Respiratory failure Assessment and Plan Acute COPD exacerbation Acute respiratory failure with hypoxia Possible pneumonia Requiring BiPAP initially Supplemental oxygen, weaning as able Steroids MAT protocol Zosyn TeleICU consulted Tobacco abuse Nicotine patch COPD cachexia Ensure with meals DVT prophylaxis: Lovenox Diagnosis/Problems Diagnosis/Problems (1) Acute exacerbation of chronic obstructive pulmonary disease (COPD) Status: Acute (2) Acute respiratory failure with hypoxia Status: Acute (3) Pneumonia Status: Acute (4) Tobacco dependence Status: Acute (5) Pulmonary cachexia due to COPD Status: Acute PRANAV ROBERTO MD Mar 21, 2022 21:17
[2022-03-21] MEDS: RT-ALBUTEROL/IPRATROPIUM 3 ML (DUONEB) VIAL INH SCH (22:36)
[2022-03-22] MEDS: RT-ALBUTEROL/IPRATROPIUM 3 ML (DUONEB) VIAL INH SCH ×2 (03:11→08:58)
[2022-03-22] MEDS: PIPERACILLIN SODIUM/TAZOBACTAM 4.5 GM in NS (IVPB) 100 ML IV SCH (03:58)
[2022-03-22 05:00] LABS: BASOPHILS % (AUTO) 0 % (0-10); EOSINOPHILS % (AUTO) 0 % (0-10); HEMATOCRIT 39 % (35-52); HEMOGLOBIN 12.8 g/dL (11.5-16.0); LYMPHOCYTES % (AUTO) 8 % (12-44); MEAN CORPUSCULAR HEMOGLOBIN 31 pg (25-34); MEAN CORPUSCULAR HGB CONC 33 g/dL (32-36); MEAN CORPUSCULAR VOLUME 94 fL (80-99); MEAN PLATELET VOLUME 10.7 fL (9.0-12.2); MONOCYTES # (AUTO) 0.1 10^3/uL (0.0-1.0); MONOCYTES % (AUTO) 1 % (0-12); NEUTROPHILS # (AUTO) 10.5 10^3/uL (1.8-7.8); NEUTROPHILS % (AUTO) 90 % (42-75); PLATELET COUNT 216 10^3/uL (130-400); WHITE BLOOD COUNT 11.6 10^3/uL (4.3-11.0)
[2022-03-22 05:16] LABS: POTASSIUM 3.7 MMOL/L (3.6-5.0)
[2022-03-22 05:17] LABS: CALCIUM 8.8 MG/DL (8.5-10.1)
[2022-03-22 05:22] LABS: CREATININE SERUM 0.7 MG/DL (0.60-1.30)
[2022-03-22] MEDS: methylPREDNISolone 125 MG (Solu-MEDROL) VIAL IVP SCH (05:40)
[2022-03-22 06:09] LABS: BAND NEUTROPHILS 1 %; BURR CELLS SLIGHT; LYMPHOCYTES % (MANUAL) 12 %; MONOCYTES % (MANUAL) 3 %; NEUTROPHILS % (MANUAL) 84 %
[2022-03-22] MEDS: NICOTINE 14 MG (NICODERM) PATCH TD SCH (07:56)
[2022-03-22] MEDS: SENNOSIDES 8.6 MG (SENOKOT) TAB PO SCH (07:59)
[2022-03-22] MEDS: DOCUSATE SODIUM 100 MG (COLACE) CAP PO SCH (07:59)
[2022-03-22] MEDS ORDERED: predniSONE 20 MG TAB PO NR (09:00)
[2022-03-22] MEDS ORDERED: NICOTINE 14 MG (NICODERM) PATCH TD SCH (09:00)
--- NOTE | 2022-03-22 09:29 | Tele-ICU Progress Note ---
Subjective Date Seen by a Provider: Mar 22, 2022 Time Seen by a Provider: 09:29 Subjective/Events-last exam (Tele-ICU Physician , consultation as per request of PCP Service provided via interactive audio and video telecommunications E-CARE system to a patient admitted to ICU bed in [facility]. (Tele-ICU Physician , Progress Note ) Service provided via interactive audio and video telecommunications E-CARE system to a patient admitted to ICU bed in [facility]. Available chart/ vitals / labs / Images reviewed Video assessment done using teleICU camera, rest of exam as per RN Discussed with RN Events overnight : febrile 37.1 hemodynamically stable Respiratory - 3l I/O = pos Drips: na Pressors- no Patient is seen today due to persistent dyspnea Consultants: Hospital course: admitted for pneumonia 10 days ago and was sent home with a steroid taper (03/21) 61 y F from ER with dyspnea (hx COPD and smoker) admit COPD exac CT neg PE A/P Acute resp failure ( no PE on CT ) - off NIPPV now - monitor AECOPD - nebs , -steroids SM 60 q 6- to decrease todau - ? PO ( s/p d/c 03/07 for AECOPD , given a prescription for Anoro Ellipta and Prednisone on discharge Possible PNA - Zosyn started - might not need this gressive abx - as per bedside MD Lines : per , (Central Line Necessity Reviewed) Choi: OG: Nutrition: po Analgesia: Anxiety/ delirium VTE Prophylaxis: do 30 Stress Ulcer Prophylaxis: Glycemic Control: Plans in collaboration with bedside consultants and IM MDs. Discussed with RN to reach out if any questions or concerns A total of 15 minutes of critical care time was devoted to this patient today, required to treat and/or prevent further deterioration of critical care condition ( as above ) . I am remotely monitoring this patient from another state. I am unable to do the bedside exam, and history/physical and pertinent information is taken from other notes in the computer and bedside staff. . Sepsis Event Evaluation Height, Weight, BMI Height: 5'4.00" Weight: 92lbs. oz. 41.020852pg; 16.72 BMI Method:Stated Exam Exam Patient acknowledged, consented, and participated in this virtual visit which was conducted using real time audio/video Vital Signs Date Time Temp Pulse Resp B/P (MAP) Pulse Ox O2 Delivery O2 Flow Rate FiO2 03/22/22 08:59 96 Room Air 03/22/22 08:00 96 Nasal Cannula 2.00 03/22/22 08:00 73 19 96/64 (75) 95 Nasal Cannula 2.00 03/22/22 07:48 36.5 03/22/22 07:00 74 03/22/22 07:00 74 37 89/60 (70) 97 Nasal Cannula 2.00 03/22/22 06:00 71 27 91/64 (73) 97 Nasal Cannula 2.00 03/22/22 05:00 68 22 94/54 (67) 96 Nasal Cannula 2.00 03/22/22 04:00 96 Nasal Cannula 2.00 03/22/22 04:00 36.8 67 24 97/55 (69) 96 Nasal Cannula 2.00 03/22/22 03:34 37.1 03/22/22 03:00 63 19 86/59 (68) 97 Nasal Cannula 2.00 03/22/22 02:00 70 36 94/55 (68) 96 Nasal Cannula 2.00 03/22/22 01:08 73 03/22/22 01:00 73 20 91/51 (64) 94 Nasal Cannula 2.00 03/22/22 00:00 70 33 90/48 (62) 93 Nasal Cannula 2.00 03/21/22 23:42 36.9 03/21/22 23:20 95 Nasal Cannula 2.00 03/21/22 23:00 64 32 86/48 (61) 93 Nasal Cannula 2.00 03/21/22 22:39 98 Nasal Cannula 1.00 03/21/22 22:00 64 38 85/53 (64) 96 Nasal Cannula 2.00 03/21/22 21:00 72 48 94/37 (56) 96 Nasal Cannula 2.00 03/21/22 20:00 69 30 92/48 (63) 95 Nasal Cannula 2.00 03/21/22 19:40 Nasal Cannula 2.00 03/21/22 19:35 67 03/21/22 19:00 37.2 62 24 91/53 (66) 97 Nasal Cannula 2.00 03/21/22 18:00 75 36 106/50 (68) 97 Nasal Cannula 3.00 03/21/22 17:00 74 23 87/45 (59) 97 Nasal Cannula 3.00 03/21/22 16:00 62 23 87/49 (62) 97 Nasal Cannula 3.00 03/21/22 16:00 36.3 03/21/22 15:58 35.2 75 98 03/21/22 15:47 98 Nasal Cannula 3.00 03/21/22 15:24 62 03/21/22 15:18 Nasal Cannula 3.00 03/21/22 15:00 65 65 118/68 (85) 97 Nasal Cannula 3.00 03/21/22 13:32 75 25 99/54 98 NIV Bilevel I & O 03/22/22 07:00 Intake Total 1500 ml Output Total 725 ml Balance 775 ml Height & Weight Height: 5'4.00" Weight: 92lbs. oz. 41.859594fp; 16.72 BMI Method:Stated General Appearance: No Apparent Distress, Chronically ill, Cachetic HEENT: PERRL/EOMI, Pharynx Normal Neck: Normal Inspection, Supple Respiratory: No Respiratory Distress, Decreased Breath Sounds Cardiovascular: Regular Rate, Rhythm, No Murmur Capillary Refill: Less Than 3 Seconds Gastrointestinal: non tender, soft Extremity: Normal Inspection, No Pedal Edema Neurologic/Psychiatric: Alert, Normal Mood/Affect Skin: Normal Color, Warm/Dry Results Lab Laboratory Tests 03/21/22 08:11 03/22/22 04:38 03/22/22 04:48 Assessment/Plan Assessment/Plan 1 ANABELL FAUSTIN MD Mar 22, 2022 09:29
[2022-03-22] MEDS ORDERED: IBUP-2185 PO (10:37)
[2022-03-22] MEDS ORDERED: UMEC1BLS IH (10:37)
[2022-03-22] MEDS ORDERED: NICO-587 TD (10:37)
[2022-03-22] MEDS ORDERED: DOXY100C5 PO (10:40)
[2022-03-22] MEDS ORDERED: IPRA3AMP31 IH (10:40)
[2022-03-22] MEDS ORDERED: PRED10TA22 PO (10:40)
--- NOTE | 2022-03-22 11:40 | Discharge Summary ---
Discharge Summary Hospital Course Problems/Dx: (1) Acute exacerbation of chronic obstructive pulmonary disease (COPD) Status: Acute (2) Acute respiratory failure with hypoxia Status: Acute (3) Pneumonia Status: Acute (4) Tobacco dependence Status: Acute (5) Pulmonary cachexia due to COPD Status: Acute Hospital Course Date of Admission: Mar 21, 2022 at 12:10 Admission Diagnosis : Acute COPD exacerbation with lower respiratory infection Family Physician/Provider: Isidoro Mi MD Date of Discharge: 03/22/22 Discharge Diagnosis: Acute COPD exacerbation with lower respiratory infection Hospital Course: Julisa Zaidi is a 61 year old female with COPD, tobacco abuse, cachexia, who presented with shortness of breath and was admitted with acute COPD exacerbation. She was treated with steroids and breathing treatments. She was also treated with antibiotics. She will complete a steroid taper and a course of doxycycline as an outpatient. She was given a prescription for a nebulizer and Duoneb treatments. She should continue her inhalers. She should follow up with [facility] in about a week. She should keep her appointment to establish care on April 30. She was discharged home in fair condition. Labs and Pending Lab Test: Laboratory Tests 03/22/22 04:38: White Blood Count 11.6H, Red Blood Count 4.09, Hemoglobin 12.8, Hematocrit 39, Mean Corpuscular Volume 94, Mean Corpuscular Hemoglobin 31, Mean Corpuscular Hemoglobin Concent 33, Red Cell Distribution Width 14.2, Platelet Count 216, Mean Platelet Volume 10.7, Immature Granulocyte % (Auto) 0, Neutrophils (%) (Auto) 90H, Lymphocytes (%) (Auto) 8L, Monocytes (%) (Auto) 1, Eosinophils (%) (Auto) 0, Basophils (%) (Auto) 0, Neutrophils # (Auto) 10.5H, Lymphocytes # (Auto) 1.0, Monocytes # (Auto) 0.1, Eosinophils # (Auto) 0.0, Basophils # (Auto) 0.0, Immature Granulocyte # (Auto) 0.1, Neutrophils % (Manual) 84, Lymphocytes % (Manual) 12, Monocytes % (Manual) 3, Band Neutrophils 1, [place] Cells SLIGHT 03/22/22 04:48: Sodium Level 139, Potassium Level 3.7, Chloride Level 108H, Carbon Dioxide Level 17L, Anion Gap 14, Blood Urea Nitrogen 11, Creatinine 0.70, Estimat Glomerular Filtration Rate 98, BUN/Creatinine Ratio 16, Glucose Level 136H, Calcium Level 8.8, Procalcitonin 0.02 Microbiology 03/21/22 MRSA Screen - Final, Complete MRSA not isolated Home Meds Active Doxycycline Hyclate 100 Mg Capsule 100 Mg PO BID 5 Days Iprat-Albut 0.5-3(2.5) mg/3 ml (Ipratropium/Albuterol Sulfate) 0.5 Mg-3 Mg (2.5 Mg Base)/3 Ml Ampul.neb 3 Ml IH Q6H PRN 30 Days Prednisone 10 Mg Tab.ds.pk 10 Mg PO DAILY Take 6 tabs(60mg)daily,decrease by 1 tab(10mg)every other day. Reported Ibuprofen 200 Mg Capsule 400-600 Mg PO Q8H PRN Anoro Ellipta 62.5-25 Mcg INH (Umeclidinium Brm/Vilanterol Tr) 62.5 Mcg-25 Mcg/Actuation Blst.w.dev 1 Puff IH DAILY Nicotine Patch (Nicotine) 14 Mg/24 Hour Patch.td24 14 Mg TD DAILY Ventolin Hfa (Albuterol Sulfate) 1 Puff Puff 2 Puff INH Q4H PRN Levothyroxine Sodium 75 Mcg Tablet 75 Mcg PO DAILY Aspirin EC (Aspirin) 81 Mg Tablet.dr 81 Mg PO DAILY Assessment/Pt Instructions See instructions Discharge Planning: >30 minutes discharge planning Discharge Instructions Discharge Diet: No Restrictions Activity as Tolerated: Yes Discharge Physical Examination Vital Signs Vital Signs Date Time Temp Pulse Resp B/P (MAP) Pulse Ox O2 Delivery O2 Flow Rate FiO2 03/22/22 11:00 76 26 84/56 (65) 94 Room Air 03/22/22 08:00 2.00 03/22/22 07:48 36.5 General Appearance: No Apparent Distress, Chronically ill, Cachetic Respiratory: No Respiratory Distress, Decreased Breath Sounds Cardiovascular: Regular Rate, Rhythm, No Murmur Gastrointestinal: Normal Bowel Sounds, Soft Extremity: Normal Inspection, No Pedal Edema Skin: Normal Color, Warm/Dry Neurologic/Psychiatric: Alert, Oriented x3, No Motor/Sensory Deficits Allergies: Coded Allergies: No Known Drug Allergies (Unverified , 01/27/16) Copy Copies To 1: [facility] [place] Discharge Summary Date of Admission Mar 21, 2022 at 12:10 Date of Discharge Discharge Date: Mar 22, 2022 Discharge Time: 11:37 Admission Diagnosis Acute COPD exacerbation Discharge Diagnosis Acute COPD exacerbation with lower respiratory infection Acute respiratory failure with hypoxia Tobacco abuse COPD cachexia (1) Acute exacerbation of chronic obstructive pulmonary disease (COPD) Status: Acute (2) Acute respiratory failure with hypoxia Status: Acute (3) Pneumonia Status: Acute (4) Tobacco dependence Status: Acute (5) Pulmonary cachexia due to COPD Status: Acute PRANAV ROBERTO MD Mar 22, 2022 11:40
[2022-03-23] MEDS ORDERED: predniSONE 20 MG TAB PO SCH (07:00)
[2022-03-23] MEDS ORDERED: NICOTINE PATCH REMOVAL TP SCH (08:59)
== END 2022-03-22 10:39 | disposition home or self-care (01) ==
LOC: EDUNIT# 07:59 → ER 08:01 → ICU 12:10 → OBSVTOIN 12:10 → UNDOADMOB 12:10 → INTOOBSV 12:10 → ICU 15:19 → UNDODISOB 03-22 12:05
PROVIDERS: ADMIT Internal Medicine; ATTEND Internal Medicine
DX: J44.1 Chronic obstructive pulmonary disease with (acute) exacerbation (principal); J18.9 Pneumonia, unspecified organism; J96.01 Acute respiratory failure with hypoxia; F17.210 Nicotine dependence, cigarettes, uncomplicated
CPT/HCPCS: 36415; 36600; 71045; 71275; 80048; 80053; 80306; 81000; 82805; 83735; 83880; 84145; 84484; 85007; 85027; 85379; 85610; 85730; 86141; 87040; 87081; 87636; 93005; 93041; 94640; 94761; 96365; 96372; 96375; 96376; G0378

== ENCOUNTER 2022-04-18 02:53 | Inpatient (IN) | payer OTHER ==
[~2022-04-18] VITALS: Ht 162 cm; Wt 47.6 kg
[~2022-04-18 02:53] MED LIST changes: +DOXY100C5 PO; +IBUP-2185 PO; +IPRA3AMP31 IH; +NICO-587 TD
[2022-04-18] MEDS ORDERED: ONDANSETRON 4 MG/2 ML (SDV) Z0FRAN IV PRN ×2 (03:00→05:00)
--- NOTE | 2022-04-18 03:05 | ED Dyspnea ---
General Stated Complaint: SOA Source of Information: Patient, EMS Exam Limitations: No Limitations History of Present Illness Date Seen by Provider: Apr 18, 2022 Time Seen by Provider: 02:52 Initial Comments 61-year-old female presents to the emergency department today via EMS for shortness of breath. She was recently discharged from her ICU where she was treated for COPD. She tells me she quit smoking on 21 March. When she was discharged from the hospital she was feeling a little bit better but does not feel like she fully recovered completely. She states she was doing fine for a while but has been more short of breath for the last 2 to 3 days. She does not wear oxygen at home. She has been using DuoNeb treatments at home without much relief. She is no longer taking steroids or antibiotic medications so she was discharged on prednisone and doxycycline. She has completed these courses. She denies any fevers. She does have some mid central tightness in her chest which she states is mostly the feeling of not being able to catch her air. Her at home is sick as well. She has a chronic nonproductive cough which is unchanged. No unilateral lower extremity pain, swelling, recent long distance travel, surgeries. Allergies and Home Medications Allergies Coded Allergies: No Known Drug Allergies (Unverified , 01/27/16) Patient Home Medication List Home Medication List Reviewed: Yes Albuterol Sulfate (Ventolin Hfa) 1 Puff Puff, 2 PUFF INH Q4H PRN for SHORTNESS OF BREATH, (Reported) Entered as Reported by: KOFFI ORTIZ on 03/07/22 1033 Aspirin (Aspirin EC) 81 Mg Tablet.dr, 81 MG PO DAILY, (Reported) Entered as Reported by: BARB MORTENSEN on 01/05/21 1357 Doxycycline Hyclate (Doxycycline Hyclate) 100 Mg Capsule, 100 MG PO BID Prescribed by: PRANAV ROBERTO on 03/22/22 1040 Ibuprofen (Ibuprofen) 200 Mg Capsule, 400-600 MG PO Q8H PRN for PAIN-MILD (1-4), (Reported) Entered as Reported by: KOFFI ORTIZ on 03/22/22 1037 Ipratropium/Albuterol Sulfate (Iprat-Albut 0.5-3(2.5) mg/3 ml) 0.5 Mg-3 Mg (2.5 Mg Base)/3 Ml Ampul.neb, 3 ML IH Q6H PRN for SHORTNESS OF BREATH Prescribed by: PRANAV ROBERTO on 03/22/22 1040 Levothyroxine Sodium (Levothyroxine Sodium) 75 Mcg Tablet, 75 MCG PO DAILY, (Reported) Entered as Reported by: KOFFI ORTIZ on 03/07/22 1033 Nicotine (Nicotine Patch) 14 Mg/24 Hour Patch.td24, 14 MG TD DAILY, (Reported) Entered as Reported by: KOFFI ORTIZ on 03/22/22 1037 Prednisone (Prednisone) 10 Mg Tab.ds.pk, 10 MG PO DAILY Prescribed by: PRANAV ROBERTO on 03/22/22 1040 Umeclidinium Brm/Vilanterol Tr (Anoro Ellipta 62.5-25 Mcg INH) 62.5 Mcg-25 Mcg/Actuation Blst.w.dev, 1 PUFF IH DAILY, (Reported) Entered as Reported by: KOFFI ORTIZ on 03/22/22 1037 Review of Systems Review of Systems Constitutional: weakness EENTM: no symptoms reported Respiratory: cough, short of breath Cardiovascular: chest pain Gastrointestinal: nausea Genitourinary: no symptoms reported Musculoskeletal: no symptoms reported Skin: no symptoms reported Psychiatric/Neurological: No Symptoms Reported Endocrine: No Symptoms Reported Hematologic/Lymphatic: No Symptoms Reported Past Kkmhvmb-Ygxwrd-Inqrnh Hx Patient Social History Tobacco Use?: Yes Tobacco type used: Cigarettes Smoking Status: Former Smoker Use of E-Cig and/or Vaping dev: No Substance use?: No Alcohol Use?: No Immunizations Up To Date First/Initial COVID19 Vaccinat: 05/02/2020 Second COVID19 Vaccination [place]: 05/22/2020 Third COVID19 Vaccination Date: 05/02/2020 Seasonal Allergies Seasonal Allergies: No Past Medical History Surgery/Hospitalization HX: COPD Surgeries: Yes (VARICOSE VEINS STRIPPED, R ARM ORIF) Orthopedic Respiratory: Yes COPD Cardiac: Yes (VARICOSE VEINS, THROMBOPHLEBITIS--IS UNCLEAR IF SUPERFICIAL OR DEEP ) Neurological: No Genitourinary: No Gastrointestinal: No Musculoskeletal: No Endocrine: Yes Hypothyroidsim Cancer: No Psychosocial: No Integumentary: No Blood Disorders: No Family Medical History Reviewed Nursing Family Hx No Pertinent Family Hx Physical Exam Vital Signs Vital Signs - First Documented 04/18/22 02:54 Temp 36.9 Pulse 107 Resp 32 B/P (MAP) 116/90 (99) Pulse Ox 98 O2 Delivery OxyMask O2 Flow Rate 10.00 FiO2 98 Capillary Refill : Height, Weight, BMI Height: 5'4.00" Weight: 92lbs. oz. 41.794321ku; 16.72 BMI Method:Stated General Appearance: Moderate Distress HEENT: Normal ENT Inspection, Pharynx Normal Neck: Full Range of Motion, Normal Inspection, Non Tender, Supple Respiratory: Chest Non Tender, Other (Moderate respiratory distress with inspiratory and expiratory wheezing, use of accessory muscles for) Cardiovascular: Regular Rate, Rhythm, No Murmur, Normal Peripheral Pulses Gastrointestinal: Normal Bowel Sounds, No Pulsatile Mass, Non Tender, Soft Extremity: Normal Capillary Refill, Normal Inspection, Normal Range of Motion, Non Tender, No Calf Tenderness Neurologic/Psychiatric: Alert, Oriented x3, Normal Mood/Affect Skin: Normal Color, Warm/Dry Lymphatic: No Adenopathy Focused Exam Lactate Level 04/18/22 03:10: Lactic Acid Level 2.13*H Lactic Acid Level Laboratory Tests Test 04/18/22 03:10 Lactic Acid Level 2.13 MMOL/L (0.50-2.00) *H Progress/Results/Core Measures Results/Orders Lab Results Laboratory Tests Test 04/18/22 03:10 Range/Units White Blood Count 10.7 4.3-11.0 10^3/uL Red Blood Count 4.69 3.80-5.11 10^6/uL Hemoglobin 14.7 11.5-16.0 g/dL Hematocrit 45 35-52 % Mean Corpuscular Volume 96 80-99 fL Mean Corpuscular Hemoglobin 31 25-34 pg Mean Corpuscular Hemoglobin Concent 33 32-36 g/dL Red Cell Distribution Width 14.6 H 10.0-14.5 % Platelet Count 243 130-400 10^3/uL Mean Platelet Volume 10.4 9.0-12.2 fL Immature Granulocyte % (Auto) 0 % Neutrophils (%) (Auto) 26 L 42-75 % Lymphocytes (%) (Auto) 53 H 12-44 % Monocytes (%) (Auto) 7 0-12 % Eosinophils (%) (Auto) 12 H 0-10 % Basophils (%) (Auto) 2 0-10 % Neutrophils # (Auto) 2.8 1.8-7.8 10^3/uL Lymphocytes # (Auto) 5.7 H 1.0-4.0 10^3/uL Monocytes # (Auto) 0.8 0.0-1.0 10^3/uL Eosinophils # (Auto) 1.3 H 0.0-0.3 10^3/uL Basophils # (Auto) 0.2 H 0.0-0.1 10^3/uL Immature Granulocyte # (Auto) 0.0 0.0-0.1 10^3/uL Prothrombin Time 13.8 12.2-14.7 SEC INR Comment 1.0 0.8-1.4 Activated Partial Thromboplast Time 26 24-35 SEC Sodium Level 142 135-145 MMOL/L Potassium Level 4.0 3.6-5.0 MMOL/L Chloride Level 110 H 98-107 MMOL/L Carbon Dioxide Level 22 21-32 MMOL/L Anion Gap 10 5-14 MMOL/L Blood Urea Nitrogen 10 7-18 MG/DL Creatinine 0.83 0.60-1.30 MG/DL Estimat Glomerular Filtration Rate 80 BUN/Creatinine Ratio 12 Glucose Level 213 H 70-105 MG/DL Lactic Acid Level 2.13 *H 0.50-2.00 MMOL/L Calcium Level 8.8 8.5-10.1 MG/DL Corrected Calcium 9.0 8.5-10.1 MG/DL Total Bilirubin 0.4 0.1-1.0 MG/DL Aspartate Amino Transf (AST/SGOT) 24 5-34 U/L Alanine Aminotransferase (ALT/SGPT) 17 0-55 U/L Alkaline Phosphatase 63 40-136 U/L Troponin I < 0.028 <0.028 NG/ML Total Protein 6.3 L 6.4-8.2 GM/DL Albumin 3.8 3.2-4.5 GM/DL Influenza Type A (RT-PCR) Not Detected Not Detecte Influenza Type B (RT-PCR) Not Detected Not Detecte SARS-CoV-2 RNA (RT-PCR) Not Detected Not Detecte My Orders Orders - TERESA MONTGOMERY DO Cbc With Automated Diff (04/18/22 02:59) Comprehensive Metabolic Panel (04/18/22 02:59) Blood Culture (04/18/22 02:59) Sputum Culture (04/18/22 02:59) Protime With Inr (04/18/22 02:59) Partial Thromboplastin Time (04/18/22 02:59) Chest 1 View, Ap/Pa Only (04/18/22 02:59) Ed Iv/Invasive Line Start (04/18/22 02:59) Ekg Tracing (04/18/22 02:59) Vital Signs Adult Sepsis Patie Q15M (04/18/22 02:59) Ondansetron Injection (Zofran Injectio (04/18/22 03:00) O2 (04/18/22 02:59) Lactic Acid Analyzer (04/18/22 02:59) Influenza A And B By Pcr (04/18/22 02:59) Covid 19 Inhouse Test (04/18/22 02:59) Methylprednisolone Sod Succ (Solu-Medrol (04/18/22 03:15) Albuterol Pre-Mix Nebs (Rt) (Proventil (04/18/22 03:30) Svn Small Volume Nebulizer (04/18/22 03:25) Albuterol Pre-Mix Nebs (Rt) (Proventil (04/18/22 03:26) Medications Given in ED Current Medications Medications Dose Ordered Sig/Mayte Route Start Time Stop Time Status Last Admin Dose Admin Albuterol Sulfate 2.5 mg ONCE ONCE INH 04/18/22 03:30 04/18/22 03:31 DC 04/18/22 03:27 2.5 MG Methylprednisolone Sodium Succinate 125 mg ONCE ONCE IVP 04/18/22 03:15 04/18/22 03:17 DC 04/18/22 03:16 125 MG Ondansetron HCl 4 mg PRN PRN IV 04/18/22 03:00 04/18/22 03:17 DC 04/18/22 03:16 4 MG Vital Signs/I&O 04/18/22 04/18/22 04/18/22 04/18/22 02:54 02:54 03:21 03:27 Temp 36.9 Pulse 107 96 Resp 32 23 B/P (MAP) 116/90 (99) Pulse Ox 98 98 100 100 O2 Delivery OxyMask OxyMask NIV Bilevel O2 Flow Rate 10.00 50.00 FiO2 98 30 Departure Communication (Admissions) Patient initially with significant increased work of breathing. Placed on BiPAP and given another breathing treatment and she had significant improvement in her symptoms and feeling much better. Proximal slightly low, 8788% on room air. She does not typically require home oxygen. Chest x-ray is clear. No lorelei kocytosis, anemia. Chemistries unremarkable. Troponin is negative and EKG is nonischemic. Admitted in stable condition. I placed bridging orders. Impression Primary Impression: Acute exacerbation of chronic obstructive pulmonary disease (COPD) Disposition: ADMITTED INPATIENT Condition: Improved Admissions Decision to Admit Reason: Admit from ER (General) Departure-Patient Inst. Referrals: THIERNO CURIEL MD (PCP/Family) Primary Care Physician TERESA MONTGOMERY DO Apr 18, 2022 03:05
[2022-04-18] MEDS ORDERED: methylPREDNISolone 125 MG (Solu-MEDROL) VIAL IVP ONE (03:15)
[2022-04-18 03:21] VITALS: BP 114/90
[2022-04-18] MEDS ORDERED: RT-ALBUTEROL SULF 2.5 MG/3 ML PRE-MIX VIAL ONE (03:26)
[2022-04-18 03:29] LABS: BASOPHILS # (AUTO) 0.2 10^3/uL (0.0-0.1); BASOPHILS % (AUTO) 2 % (0-10); EOSINOPHILS # (AUTO) 1.3 10^3/uL (0.0-0.3); EOSINOPHILS % (AUTO) 12 % (0-10); HEMATOCRIT 45 % (35-52); HEMOGLOBIN 14.7 g/dL (11.5-16.0); LYMPHOCYTES # (AUTO) 5.7 10^3/uL (1.0-4.0); LYMPHOCYTES % (AUTO) 53 % (12-44); MEAN CORPUSCULAR HEMOGLOBIN 31 pg (25-34); MEAN CORPUSCULAR HGB CONC 33 g/dL (32-36); MEAN CORPUSCULAR VOLUME 96 fL (80-99); MEAN PLATELET VOLUME 10.4 fL (9.0-12.2); MONOCYTES # (AUTO) 0.8 10^3/uL (0.0-1.0); MONOCYTES % (AUTO) 7 % (0-12); NEUTROPHILS # (AUTO) 2.8 10^3/uL (1.8-7.8); NEUTROPHILS % (AUTO) 26 % (42-75); PLATELET COUNT 243 10^3/uL (130-400); WHITE BLOOD COUNT 10.7 10^3/uL (4.3-11.0)
[2022-04-18] MEDS ORDERED: RT-ALBUTEROL SULF 2.5 MG/3 ML PRE-MIX VIAL INH ONE (03:30)
[2022-04-18 03:35] LABS: ALBUMIN 3.8 GM/DL (3.2-4.5)
[2022-04-18 03:37] LABS: CALCIUM 8.8 MG/DL (8.5-10.1); PROTHROMBIN TIME PATIENT 13.8 SEC (12.2-14.7)
[2022-04-18 03:38] LABS: TOTAL PROTEIN 6.3 GM/DL (6.4-8.2)
[2022-04-18 03:39] LABS: BILIRUBIN,TOTAL 0.4 MG/DL (0.1-1.0)
[2022-04-18 03:41] LABS: CREATININE SERUM 0.83 MG/DL (0.60-1.30)
[2022-04-18 04:45] VITALS: BP 89/44
[2022-04-18] MEDS ORDERED: RT-ALBUTEROL/IPRATROPIUM 3 ML (DUONEB) VIAL INH PRN (04:45)
[2022-04-18 05:00] VITALS: BP 86/48
[2022-04-18] MEDS ORDERED: polyethylene glycoL POWDER 17 GM (MIRALAX) PACK PO PRN (05:00)
[2022-04-18] MEDS ORDERED: LACTULOSE SYRUP 10GM/15ML (ENULOSE) 30ML UDC PO PRN (05:00)
[2022-04-18] MEDS ORDERED: diphenhydrAMINE 25 MG TAB (BENADRYL) PO PRN (05:00)
[2022-04-18] MEDS ORDERED: morphine INJ 4 MG/ML 1 ML (VIAL/SYRINGE) IV PRN (05:00)
[2022-04-18] MEDS ORDERED: BISACODYL 10 MG SUPP (DULCOLAX) PR PRN (05:00)
[2022-04-18] MEDS ORDERED: MELATONIN 3 MG TABLET PO PRN (05:00)
[2022-04-18] MEDS ORDERED: diphenhydrAMINE 50 MG/ML INJ (BENADRYL) IVP PRN (05:00)
[2022-04-18] MEDS ORDERED: MILK OF MAGNESIA 400 MG/5 ML 30 ML UDC PO PRN (05:00)
[2022-04-18] MEDS ORDERED: ACETAMINOPHEN 325 MG TABLET PO PRN (05:00)
[2022-04-18] MEDS ORDERED: ONDANSETRON 4 MG (ZOFRAN) ORAL DISSOLVE TAB PO PRN (05:00)
[2022-04-18] MEDS ORDERED: ANTACID SUSP 30 ML UDC (MYLANTA) PO PRN (05:00)
[2022-04-18 05:13] VITALS: BP 92/51
[2022-04-18 05:30] VITALS: BP 89/55
[2022-04-18] MEDS ORDERED: ENOXAPARIN 40 MG/0.4 ML (LOVENOX) SYR SC SCH (06:00)
[2022-04-18] MEDS: methylPREDNISolone 40 MG/ML (Solu-MEDROL) VIAL IV SCH ×4 (06:26→23:41)
[2022-04-18] MEDS: CATHETER FLUSH 10 ML SYR IVP SCH ×3 (06:27→21:00)
[2022-04-18] MEDS ORDERED: LACTATED RINGERS 1,000 ML IV SCH (06:30)
[2022-04-18] MEDS ORDERED: LACTATED RINGERS 1,000 ML IV ONE (06:34)
[2022-04-18] MEDS: inSUlin ASPART (NovoLOG) 1 UNIT/0.01 ML (CHARGE PER UNIT) SC SCH ×4 (06:36→20:59)
[2022-04-18] MEDS: RT-ALBUTEROL/IPRATROPIUM 3 ML (DUONEB) VIAL INH SCH ×5 (07:08→22:09)
--- NOTE | 2022-04-18 07:34 | Diagnostic Imaging Report ---
INDICATION: Dyspnea, shortness of air, COPD exacerbation. EXAMINATION: Chest 04/18/2022 COMPARISON: 03/21/2022. FINDINGS: Lungs hyperinflated. No infiltrates or effusions noted. Heart and pulmonary vasculature normal. IMPRESSION: 1. Hyperinflation of the lungs. No superimposed acute process. Dictated by: Dictated on workstation # [id number]
[2022-04-18] MEDS: SENNOSIDES 8.6 MG (SENOKOT) TAB PO SCH ×2 (07:37→20:59)
[2022-04-18] MEDS: DOCUSATE SODIUM 100 MG (COLACE) CAP PO SCH ×2 (07:37→20:59)
--- NOTE | 2022-04-18 07:51 | Tele-ICU Consult ---
History of Present Illness History of Present Illness Date Seen by Provider: Apr 18, 2022 Time Seen by Provider: 07:46 Date of Admission (Tele-ICU Physician , consult Service provided via interactive audio and video telecommunications E-CARE system to a patient admitted to ICU bed in [facility], [place]. Available chart/ vitals / labs / Images reviewed H&P is from ER notes Patient's information available about PMH, Shx, Fhx allergy reviewed inEMR. ROS as per chart and RN report Now in ICU, hemodynamically stable Video assessment done using teleICU camera, rest of exam as per RN Discussed with RN. 61 yo F with severe COPD, just discharged has cc of increased SOB, has non productive cough, in past has been on abx, steroids, nebulizers-Duoneb but not helping lately Placed on BiPAP, nebulizers with improvement CXR is clear for infiltrates but shows hyperinflation trop and EKG ok Covid and flu serology are negative LA elevated at 2.57 Allergies and Home Medications Allergies Coded Allergies: No Known Drug Allergies (Unverified , 01/27/16) Home Medications Albuterol Sulfate 1 Puff Puff, 2 PUFF INH Q4H PRN for SHORTNESS OF BREATH, (Reported) Aspirin 81 Mg Tablet.dr, 81 MG PO DAILY, (Reported) Ibuprofen 200 Mg Capsule, 400-600 MG PO Q8H PRN for PAIN-MILD (1-4), (Reported) Levothyroxine Sodium 75 Mcg Tablet, 75 MCG PO DAILY, (Reported) LAST FILLED 02-24-2022 #30/30 DAY SUPPLY Multivitamin 1 Each Tablet, 1 EACH PO DAILY, (Reported) Nicotine 14 Mg/24 Hour Patch.td24, 14 MG TD DAILY, (Reported) Umeclidinium Brm/Vilanterol Tr 62.5 Mcg-25 Mcg/Actuation Blst.w.dev, 1 PUFF IH DAILY, (Reported) Past Medical/Social/Family Hx Patient Social History Tobacco Use?: No Tobacco type used: Cigarettes Smoking Status: Former Smoker Use of E-Cig and/or Vaping dev: No Substance use?: No Alcohol Use?: No Pt stated abuse/neglect: No Immunizations Up To Date Influenza Vaccine Up-to-Date: No; Not Current First/Initial COVID19 Vaccinat: 05/02/2020 Second COVID19 Vaccination [place]: 05/22/2020 Tetanus Booster (TDap): Unknown Current Status Advance Directives: No Primary Language: Argentine Preferred Spoken Language: Argentine Implanted or Applied Medical D: None Review of Systems Constitutional: see HPI EENTM: see HPI Respiratory: see HPI Cardiovascular: see HPI Gastrointestinal: see HPI Genitourinary: see HPI Musculoskeletal: see HPI Skin: see HPI Psychiatric/Neurological: See HPI Focused Exam Lactate Level 04/18/22 03:10: Lactic Acid Level 2.13*H 04/18/22 05:10: Lactic Acid Level 2.37*H 04/18/22 07:13: Height, Weight, BMI Height: 5'4.00" Weight: 92lbs. oz. 41.535933ke; 15.92 BMI Method:Stated Lactic Acid Level Laboratory Tests Test 04/18/22 05:10 04/18/22 07:13 Lactic Acid Level 2.37 MMOL/L (0.50-2.00) *H Exam Exam Patient acknowledged, consented, and participated in this virtual visit which was conducted using real time audio/video Vital Signs Date Time Temp Pulse Resp B/P (MAP) Pulse Ox O2 Delivery O2 Flow Rate FiO2 04/18/22 07:32 Nasal Cannula 3.00 04/18/22 07:24 36.7 04/18/22 07:17 72 04/18/22 07:09 98 Nasal Cannula 4.00 04/18/22 06:45 75 21 77/48 (58) 99 Nasal Cannula 4.00 04/18/22 06:30 92 19 85/55 (65) 97 04/18/22 06:15 77 20 88/54 (65) 95 04/18/22 06:00 75 12 90/51 (64) 97 NIV Bilevel 30.00 04/18/22 05:45 79 18 81/40 (54) 98 NIV Bilevel 30.00 04/18/22 05:45 79 18 81/40 (54) 98 NIV Bilevel 30.00 04/18/22 05:30 84 19 89/55 (66) 97 NIV Bilevel 30.00 04/18/22 05:30 84 20 89/55 (66) 97 04/18/22 05:16 83 23 86/48 (61) 98 NIV Bilevel 30.00 04/18/22 05:13 36.6 80 19 92/51 (65) 100 NIV Bilevel 30.00 04/18/22 05:00 78 20 89/44 (59) 100 NIV Bilevel 30.00 04/18/22 05:00 80 20 86/48 (61) 99 04/18/22 04:56 81 99 30 04/18/22 04:45 77 20 89/44 (59) 99 04/18/22 04:45 NIV Bilevel 30 04/18/22 04:40 100 30.00 04/18/22 04:37 83 04/18/22 04:34 78 21 92/51 (65) 100 NIV Bilevel 30.00 04/18/22 04:14 81 28 116/90 NIV Bilevel 04/18/22 03:27 100 NIV Bilevel 30 04/18/22 03:21 96 23 100 50.00 04/18/22 02:54 98 OxyMask 10.00 98 04/18/22 02:54 36.9 107 32 116/90 (99) 98 OxyMask I & O 04/18/22 07:00 Intake Total 50 ml Balance 50 ml Height & Weight Height: 5'4.00" Weight: 92lbs. oz. 41.390974um; 15.92 BMI Method:Stated General Appearance: Mild Distress, Moderate Distress HEENT: Normal ENT Inspection, Pharynx Normal Neck: Full Range of Motion, Normal Inspection, Non Tender, Supple Respiratory: Chest Non Tender, Lungs Clear, Other (just had neb Rx) Cardiovascular: Regular Rate, Rhythm, No Murmur, Normal Peripheral Pulses Capillary Refill: Less Than 3 Seconds Gastrointestinal: normal bowel sounds, non tender Extremity: Normal Capillary Refill, Normal Inspection, Normal Range of Motion, Non Tender, No Calf Tenderness, No Pedal Edema Neurologic/Psychiatric: Alert, Oriented x3, Normal Mood/Affect Skin: Normal Color, Warm/Dry Lymphatic: No Adenopathy Results Lab Laboratory Tests 04/18/22 03:10 Assessment/Plan Assessment/Plan AECOPD, will continue nebulizer Rx, steroids and BiPAP PRN, now on NC @ 3 lpm Not on abx Hb is almost 15 suggestive of reactive polycythemia, would do 6 min walk before discharge Critical Care: Critically Ill Patient Time spent with patient (mins): 25 TERRENCE MCKEON MD Apr 18, 2022 07:51
[2022-04-18] MEDS ORDERED: NICOTINE 14 MG (NICODERM) PATCH TD SCH (09:00)
[2022-04-18] MEDS ORDERED: MULT-1136 PO (12:30)
--- NOTE | 2022-04-18 14:55 | History & Physical-Hospitalist ---
ISAIAH ROSADO 04/18/22 1455: History of Present Illness HPI/Chief Complaint Sharri Zaidi is a 61yo female with a past medical history of hypothyroidism and superficial thrombophlebitis whom presented to ED due to SOB. 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 Pt doesn't recall anything that aggravates or alleviates her symptoms. Pt is a previous smoke, but has stopped since last hospital visit and currently uses nicotine patches. Pt is currently admitted to ICU and is on 3L oxygen NC w/ saturation of 98%. Date Seen 04/18/22 Time Seen by a Provider: 08:30 Attending Physician Isidoro Mi MD PCP Admitting Physician: Trinidad Cano DO Attending Physician: Trinidad Cano DO Referring Physician Date of Admission Apr 18, 2022 at 03:40 Home Medications & Allergies Home Medications Reviewed patient Home Medication Reconciliation performed by pharmacy medication reconciliations satellite tv technician installer and/or nursing. Patients Allergies have been reviewed. Allergies Allergies Coded Allergies No Known Drug Allergies ([id number]/28/16) Past Bnxtpky-Rpfnum-Yzcsuj Hx Patient Social History Tobacco Use?: No Tobacco type used: Cigarettes Smoking Status: Former Smoker (50 pack year history ) Use of E-Cig and/or Vaping dev: No Substance use?: No Alcohol Use?: No Pt feels they are or have been: No Immunizations Up To Date First/Initial COVID19 Vaccinat: 05/02/2020 Second COVID19 Vaccination [place]: 05/22/2020 Tetanus Booster (TDap): Unknown Seasonal Allergies Seasonal Allergies: No Current Status Advance Directives: No Primary Language: French Preferred Spoken Language: French Implanted or Applied Medical D: None Past Medical History Surgeries: Orthopedic COPD Hypothyroidsim Blood Disorders: No Family Medical History Reviewed Nursing Family Hx No Pertinent Family Hx, Asthma, Heart Disease, CAD Under 55 Years Old Review of Systems Constitutional: chills; No fever Respiratory: short of breath, wheezing Cardiovascular: chest pain, palpitations Gastrointestinal: No abdominal pain, No constipation, No diarrhea; nausea Genitourinary: No dysuria, No frequency Psychiatric/Neurological: Headache; Denies Numbness; Tingling Physical Exam Physical Exam Vital Signs Vital Signs - First Documented 04/18/22 02:54 Temp 36.9 Pulse 107 Resp 32 B/P (MAP) 116/90 (99) Pulse Ox 98 O2 Delivery OxyMask O2 Flow Rate 10.00 FiO2 98 Capillary Refill : Less Than 3 Seconds Height, Weight, BMI Height: 5'4.00" Weight: 92lbs. oz. 41.100268gm; 15.92 BMI Method:Stated General Appearance: No Apparent Distress Neck: Non Tender, Supple Respiratory: Chest Non Tender, Lungs Clear, Decreased Breath Sounds Cardiovascular: Regular Rate, Rhythm, No Edema, No Murmur, Normal Peripheral Pulses Gastrointestinal: Normal Bowel Sounds, Non Tender, Soft Rectal: Deferred Extremity: Normal Inspection, Non Tender, No Calf Tenderness Neurologic/Psychiatric: Alert, Oriented x3, Normal Mood/Affect Results Results/Procedures Labs Laboratory Tests 04/18/22 03:10 Patient resulted labs reviewed. Imaging INDICATION: Dyspnea, shortness of air, COPD exacerbation. EXAMINATION: Chest 04/18/2022 COMPARISON: 03/21/2022. FINDINGS: Lungs hyperinflated. No infiltrates or effusions noted. Heart and pulmonary vasculature normal. IMPRESSION: 1. Hyperinflation of the lungs. No superimposed acute process. Assessment/Plan Assessment and Plan Acute COPD Exacerbation Worsening Dynspnea New oxygen requirement Negative Troponin CXR - Hyperinflated Lungs MAT protocol Systemic Steroids O2 supplementation as needed Lactic Acidosis IV Fluids DVT PPx Lovenox PRANAV ROBERTO MD 04/18/22 1531: History of Present Illness Source: patient, family Exam Limitations: no limitations Time Seen by a Provider: 10:45 Past Ucjvwej-Pfqzgh-Yhjwcj Hx Patient Social History Tobacco Use?: Yes Past Medical History COPD Physical Exam Physical Exam General Appearance: No Apparent Distress, Chronically ill, Cachetic HEENT: PERRL/EOMI, Pharynx Normal Neck: Normal Inspection, Supple Respiratory: No Respiratory Distress, Decreased Breath Sounds Cardiovascular: Regular Rate, Rhythm, No Murmur Gastrointestinal: Normal Bowel Sounds, Non Tender, Soft Extremity: Normal Inspection, No Pedal Edema Neurologic/Psychiatric: Alert, Normal Mood/Affect Skin: Normal Color, Warm/Dry Results Results/Procedures Imaging: Reviewed Imaging Films, Reviewed Imaging Report Assessment/Plan Admission Diagnosis Acute COPD exacerbation Admission Status: Inpatient Order (span 2 midnights) Reason for Inpatient Admission: Respiratory failure Assessment and Plan Admitted with COPD exacerbation. Initially requiring BiPAP, now on nasal cannula. Continue streroids and breathing treatments. Dehydration resolved. Will likely discharge home in next 1-2 days. Diagnosis/Problems Diagnosis/Problems (1) Acute exacerbation of chronic obstructive pulmonary disease (COPD) Status: Acute (2) Acute respiratory failure with hypoxia Status: Acute (3) Pulmonary cachexia due to COPD Status: Acute (4) Tobacco dependence Status: Acute Supervisory-Addendum Brief Verification & Attestation Participated in pt care: history, MDM, physical Personally performed: exam, history, MDM, supervision of care Care discussed with: Medical Student Procedures: n/a Results interpretation: Verified all documentation A medical student performed and documented this service in my presence. I reviewed and verified all information documented by the medical student and made modifications to such information, when appropriate. I personally performed the physical exam and medical decision making. ISAIAH ROSADO Apr 18, 2022 14:55 PRANAV ROBERTO MD Apr 18, 2022 15:31
[2022-04-18] MEDS: NICOTINE 21 MG (NICODERM) PATCH TD SCH (17:24)
[2022-04-18] MEDS: NICOTINE PATCH REMOVAL TP SCH (17:25)
[2022-04-19] MEDS: RT-ALBUTEROL/IPRATROPIUM 3 ML (DUONEB) VIAL INH SCH ×5 (02:36→22:09)
[2022-04-19] MEDS: CALCIUM CARBONATE 500 MG (TUMS) TAB.CHEW PO PRN ×3 (04:42→20:54)
[2022-04-19 05:23] LABS: BASOPHILS % (AUTO) 0 % (0-10); EOSINOPHILS % (AUTO) 0 % (0-10); HEMATOCRIT 40 % (35-52); HEMOGLOBIN 13.5 g/dL (11.5-16.0); LYMPHOCYTES # (AUTO) 1.1 10^3/uL (1.0-4.0); LYMPHOCYTES % (AUTO) 7 % (12-44); MEAN CORPUSCULAR HEMOGLOBIN 32 pg (25-34); MEAN CORPUSCULAR HGB CONC 34 g/dL (32-36); MEAN CORPUSCULAR VOLUME 94 fL (80-99); MEAN PLATELET VOLUME 10.4 fL (9.0-12.2); MONOCYTES # (AUTO) 0.3 10^3/uL (0.0-1.0); MONOCYTES % (AUTO) 2 % (0-12); NEUTROPHILS % (AUTO) 90 % (42-75); PLATELET COUNT 214 10^3/uL (130-400); WHITE BLOOD COUNT 15.5 10^3/uL (4.3-11.0)
[2022-04-19 05:39] LABS: ANISOCYTOSIS SLIGHT; BAND NEUTROPHILS 4 %; BASOPHILS % (MANUAL) 0 %; EOSINOPHILS % (MANUAL) 0 %; LYMPHOCYTES % (MANUAL) 11 %; MONOCYTES % (MANUAL) 1 %; NEUTROPHILS % (MANUAL) 82 %; POIKILOCYTOSIS SLIGHT; REACTIVE LYMPHOCYTES 2 %; SCHISTOCYTES SLIGHT
[2022-04-19 05:50] LABS: ALBUMIN 3.6 GM/DL (3.2-4.5); POTASSIUM 3.9 MMOL/L (3.6-5.0)
[2022-04-19 05:51] LABS: CALCIUM 9.2 MG/DL (8.5-10.1)
[2022-04-19 05:52] LABS: TOTAL PROTEIN 5.8 GM/DL (6.4-8.2)
[2022-04-19 05:54] LABS: BILIRUBIN,TOTAL 0.3 MG/DL (0.1-1.0)
[2022-04-19 05:56] LABS: CREATININE SERUM 0.79 MG/DL (0.60-1.30); PHOSPHORUS 3.5 MG/DL (2.3-4.7)
[2022-04-19] MEDS: inSUlin ASPART (NovoLOG) 1 UNIT/0.01 ML (CHARGE PER UNIT) SC SCH ×4 (05:59→20:42)
[2022-04-19] MEDS: ENOXAPARIN INJECTION 30 MG/0.3 ML SYR SC SCH (06:01)
[2022-04-19] MEDS: methylPREDNISolone 40 MG/ML (Solu-MEDROL) VIAL IV SCH (06:01)
[2022-04-19] MEDS: CATHETER FLUSH 10 ML SYR IVP SCH ×3 (06:02→22:00)
[2022-04-19] MEDS: DOCUSATE SODIUM 100 MG (COLACE) CAP PO SCH ×2 (08:09→20:52)
[2022-04-19] MEDS: SENNOSIDES 8.6 MG (SENOKOT) TAB PO SCH ×2 (08:09→20:52)
--- NOTE | 2022-04-19 08:40 | Tele-ICU Progress Note ---
Subjective Date Seen by a Provider: Apr 19, 2022 Time Seen by a Provider: 08:40 Subjective/Events-last exam (Tele-ICU Physician , Progress Note ) Service provided via interactive audio and video telecommunications E-CARE system to a patient admitted to ICU bed in [facility]. Patient is seen today due to persistent need of ICU care Available chart/ vitals / labs / Images reviewed Video assessment done using teleICU camera, rest of exam as per RN Discussed with RN Events overnight : Afebrile hemodynamically stable Respiratory - ra I/O = not reported Drips: none Pressors- no A/P Acute resp failure with AECOPD - off NIPPV now , on ra - monitor AECOPD - nebs , -steroids SM IV - to decrease dose ( s/p d/c 03/07 for AECOPD , given a prescription for Anoro Ellipta and Predni sone on discharge s/p admission for Tx aecopd 03/22/22 VTE Prophylaxis: do Stress Ulcer Prophylaxis: na Plans in collaboration with bedside consultants and IM MDs. Discussed with RN to reach out if any questions or concerns A total of 5 minutes of critical care time was devoted to this patient today, required to treat and/or prevent further deterioration of critical care condition ( as above ) . I am remotely monitoring this patient from another state. I am unable to do the bedside exam, and history/physical and pertinent information is taken from other notes in the computer and bedside staff. Sepsis Event Evaluation Height, Weight, BMI Height: 5'4.00" Weight: 92lbs. oz. 41.229732gy; 15.92 BMI Method:Stated Focused Exam Lactate Level 04/18/22 03:10: Lactic Acid Level 2.13*H 04/18/22 05:10: Lactic Acid Level 2.37*H 04/18/22 07:13: Lactic Acid Level 1.39 Exam Exam Patient acknowledged, consented, and participated in this virtual visit which was conducted using real time audio/video Vital Signs Date Time Temp Pulse Resp B/P (MAP) Pulse Ox O2 Delivery O2 Flow Rate FiO2 04/19/22 08:11 36.7 04/19/22 08:00 86 22 90/57 (68) 92 Room Air 04/19/22 07:53 92 Room Air 04/19/22 07:35 Room Air 04/19/22 07:17 Nasal Cannula 1.00 04/19/22 07:00 81 25 94/49 (64) 95 Nasal Cannula 1.00 04/19/22 07:00 80 04/19/22 06:53 95 Nasal Cannula 2.00 04/19/22 06:00 79 22 90/52 (65) 91 04/19/22 05:00 79 85/53 (64) 97 04/19/22 04:11 36.3 04/19/22 04:09 Nasal Cannula 2.00 04/19/22 04:00 80 22 92/57 (69) 94 04/19/22 03:00 90 22 91/53 (66) 95 04/19/22 02:37 96 Nasal Cannula 2.00 04/19/22 02:00 84 21 91/56 (68) 97 04/19/22 01:00 84 04/19/22 01:00 82 24 92/52 (65) 95 04/19/22 00:00 82 31 88/52 (64) 95 Nasal Cannula 2.00 04/18/22 23:45 Nasal Cannula 2.00 04/18/22 23:40 36.2 04/18/22 23:00 88 20 86/51 (63) 94 04/18/22 22:09 94 Nasal Cannula 2.00 04/18/22 22:00 93 20 87/57 (67) 92 Nasal Cannula 2.00 04/18/22 21:00 85 30 110/59 (76) 94 Nasal Cannula 2.00 04/18/22 20:00 85 23 93/51 (65) 95 Nasal Cannula 2.00 04/18/22 19:15 Nasal Cannula 2.00 04/18/22 19:07 36.8 04/18/22 19:00 91 15 96/52 (67) 93 Nasal Cannula 2.00 04/18/22 19:00 85 04/18/22 18:27 93 Nasal Cannula 2.00 04/18/22 18:00 92 16 96/56 (69) 94 Nasal Cannula 2.00 04/18/22 17:00 87 9 99/59 (72) 93 Nasal Cannula 2.00 04/18/22 16:00 85 25 81/52 (62) 94 Nasal Cannula 2.00 04/18/22 15:39 Nasal Cannula 2.00 04/18/22 15:14 93 Nasal Cannula 2.00 04/18/22 15:13 36.7 04/18/22 15:00 78 21 88/51 (63) 94 Nasal Cannula 2.00 04/18/22 14:00 80 34 85/53 (64) 95 Nasal Cannula 2.00 04/18/22 13:34 81 04/18/22 13:00 86 30 85/47 (60) 94 Nasal Cannula 2.00 04/18/22 12:00 Nasal Cannula 2.00 04/18/22 12:00 82 16 83/56 (65) 94 Nasal Cannula 2.00 04/18/22 11:44 37.0 04/18/22 11:00 90 23 94/59 (71) 96 Nasal Cannula 2.00 04/18/22 10:53 Nasal Cannula 2.00 04/18/22 10:26 97 Nasal Cannula 3.00 04/18/22 10:00 79 87/50 (62) 97 Nasal Cannula 3.00 04/18/22 09:00 79 90/53 (65) 95 Nasal Cannula 3.00 04/18/22 08:44 Nasal Cannula 3.00 l I & O 04/19/22 07:00 Intake Total 2680 ml Balance 2680 ml Height & Weight Height: 5'4.00" Weight: 92lbs. oz. 41.456582db; 15.92 BMI Method:Stated General Appearance: No Apparent Distress, Chronically ill, Cachetic HEENT: PERRL/EOMI, Pharynx Normal Neck: Normal Inspection, Supple Respiratory: No Respiratory Distress, Decreased Breath Sounds Cardiovascular: Regular Rate, Rhythm, No Murmur Capillary Refill: Less Than 3 Seconds Gastrointestinal: normal bowel sounds, non tender Extremity: Normal Inspection, No Pedal Edema Neurologic/Psychiatric: Alert, Normal Mood/Affect Skin: Normal Color, Warm/Dry Lymphatic: No Adenopathy Results Lab Laboratory Tests 04/18/22 03:10 04/19/22 05:05 Assessment/Plan Assessment/Plan 1 ANABELL FAUSTIN MD Apr 19, 2022 08:40
[2022-04-19 08:55] LABS: ABG BASE EXCESS -3.3 MMOL/L (-2.5-2.5); ABG OXYGEN SATURATION 93 % (94-100); ABG PCO2 32 MMHG (35-45); ABG PH 7.42 (7.37-7.43); ABG PO2 60 MMHG (79-93); ABG TCO2 21.4 MMOL/L (21.0-31.0)
[2022-04-19 08:57] LABS: ALLENS TEST YES-POS; INSPIRED O2 30%; PATIENT TEMP 37; VENTILATOR NO
[2022-04-19] MEDS ORDERED: NICOTINE PATCH REMOVAL TP SCH (08:59)
[2022-04-19] MEDS ORDERED: PANTOPRAZOLE 40 MG (PROTONIX) TAB PO NR (10:30)
--- NOTE | 2022-04-19 13:05 | Progress Note - Hospitalist ---
ISAIAH ROSADO 04/19/22 1304: Subjective HPI/CC On Admission Date Seen by Provider: Apr 19, 2022 Time Seen by Provider: 08:00 Subjective/Events-last exam Pt was in mildly anxious while sitting up in bed during interview. Pt stated that she feels better than yesterday. Pt was off her oxygen this morning and had minimal SOB but normal saturation. Pt does report palpitations and heart burn. Pt has had a bowel movement since admission yesterday. Review of Systems General: No Chills, No Night Sweats, No Fatigue HEENT: No Head Aches, No Visual Changes Pulmonary: Dyspnea; No Cough, No Pleuritic Chest Pain Cardiovascular: Palpitations; No: Chest Pain, Edema Gastrointestinal: Constipation; No: Nausea, Vomiting, Diarrhea Neurological: No: Weakness, Numbness Focused Exam Lactate Level 04/18/22 03:10: Lactic Acid Level 2.13*H 04/18/22 05:10: Lactic Acid Level 2.37*H 04/18/22 07:13: Lactic Acid Level 1.39 Objective Exam Vital Signs Vital Signs Date Time Temp Pulse Resp B/P (MAP) Pulse Ox O2 Delivery O2 Flow Rate FiO2 04/19/22 10:21 92 Room Air 04/19/22 08:11 36.7 04/19/22 08:00 86 22 90/57 (68) 04/19/22 07:17 1.00 04/18/22 04:56 30 Capillary Refill : Less Than 3 Seconds General Appearance: Anxious, Mild Distress Respiratory: Chest Non Tender, Lungs Clear, Normal Breath Sounds Cardiovascular: Regular Rate, Rhythm, No Edema, No Murmur, Normal Peripheral Pulses Gastrointestinal: Normal Bowel Sounds, Non Tender, Soft Rectal: Deferred Neurologic/Psychiatric: Alert, Oriented x3 Results/Procedures Lab Laboratory Tests 04/19/22 05:05 Patient resulted labs reviewed. Imaging: Reviewed Imaging Films, Reviewed Imaging Report Assessment/Plan Assessment and Plan Assess & Plan/Chief Complaint Acute COPD Exacerbation Dyspnea improved on room air CXR 04/18/22 - Hyperinflated Lungs MAT protocol Systemic Steroids O2 supplementation as needed Transferred to floor from ICU Home Oxygen assessment Taper on IV steroid and switch to oral prednisone tomorrow Lactic Acidosis Resolved Acid Reflux Pantoprazole DVT PPx Lovenox PRANAV ROBERTO MD 04/19/22 5105: Subjective HPI/CC On Admission Time Seen by Provider: 10:10 Objective Exam General Appearance: No Apparent Distress, Anxious, Chronically ill, Cachetic Respiratory: No Respiratory Distress, Decreased Breath Sounds Cardiovascular: Regular Rate, Rhythm, No Murmur Gastrointestinal: Normal Bowel Sounds, Soft Extremity: Normal Inspection, No Pedal Edema Neurologic/Psychiatric: Alert, No Motor/Sensory Deficits Skin: Normal Color, Warm/Dry Assessment/Plan Assessment and Plan Assess & Plan/Chief Complaint Decrease steroids, transition to oral prednisone tomorrow. Obtain home oxygen evaluation. Likely discharge home tomorrow with steroid taper. Diagnosis/Problems Diagnosis/Problems (1) Acute exacerbation of chronic obstructive pulmonary disease (COPD) Status: Acute (2) Acute respiratory failure with hypoxia Status: Acute (3) Pulmonary cachexia due to COPD Status: Acute (4) Tobacco dependence Status: Acute Supervisory-Addendum Brief Verification & Attestation Participated in pt care: history, MDM, physical Personally performed: exam, history, MDM, supervision of care Care discussed with: Medical Student Procedures: n/a Results interpretation: Verified all documentation A medical student performed and documented this service in my presence. I reviewed and verified all information documented by the medical student and made modifications to such information, when appropriate. I personally performed the physical exam and medical decision making. ISAIAH ROSADO Apr 19, 2022 13:04 PRANAV ROBERTO MD Apr 19, 2022 18:59
[2022-04-19 15:10] VITALS: BP 96/54
[2022-04-19] MEDS ORDERED: methylPREDNISolone 40 MG/ML (Solu-MEDROL) VIAL IV SCH (18:00)
[2022-04-19 19:05] VITALS: BP 108/54
[2022-04-19] MEDS: NICOTINE PATCH REMOVAL TP SCH (20:49)
[2022-04-19] MEDS: NICOTINE 21 MG (NICODERM) PATCH TD SCH (20:52)
[2022-04-19 23:45] VITALS: BP 94/51
[2022-04-20] MEDS: RT-ALBUTEROL/IPRATROPIUM 3 ML (DUONEB) VIAL INH SCH ×3 (03:03→11:18)
[2022-04-20 03:47] VITALS: BP 105/53
[2022-04-20] MEDS: ENOXAPARIN INJECTION 30 MG/0.3 ML SYR SC SCH (05:29)
[2022-04-20] MEDS: inSUlin ASPART (NovoLOG) 1 UNIT/0.01 ML (CHARGE PER UNIT) SC SCH ×2 (05:32→11:26)
[2022-04-20] MEDS: CATHETER FLUSH 10 ML SYR IVP SCH (05:33)
[2022-04-20 05:42] LABS: BASOPHILS % (AUTO) 0 % (0-10); EOSINOPHILS % (AUTO) 0 % (0-10); HEMATOCRIT 37 % (35-52); HEMOGLOBIN 12.3 g/dL (11.5-16.0); LYMPHOCYTES # (AUTO) 2.1 10^3/uL (1.0-4.0); LYMPHOCYTES % (AUTO) 13 % (12-44); MEAN CORPUSCULAR HEMOGLOBIN 32 pg (25-34); MEAN CORPUSCULAR HGB CONC 33 g/dL (32-36); MEAN CORPUSCULAR VOLUME 94 fL (80-99); MEAN PLATELET VOLUME 10.6 fL (9.0-12.2); MONOCYTES # (AUTO) 0.9 10^3/uL (0.0-1.0); MONOCYTES % (AUTO) 5 % (0-12); NEUTROPHILS # (AUTO) 13.3 10^3/uL (1.8-7.8); NEUTROPHILS % (AUTO) 82 % (42-75); PLATELET COUNT 220 10^3/uL (130-400); WHITE BLOOD COUNT 16.3 10^3/uL (4.3-11.0)
[2022-04-20 05:57] LABS: ALBUMIN 3.3 GM/DL (3.2-4.5); BILIRUBIN,TOTAL 0.3 MG/DL (0.1-1.0); CREATININE SERUM 0.71 MG/DL (0.60-1.30); MAGNESIUM 2.1 MG/DL (1.6-2.4); PHOSPHORUS 3.9 MG/DL (2.3-4.7); POTASSIUM 3.8 MMOL/L (3.6-5.0); TOTAL PROTEIN 5.5 GM/DL (6.4-8.2)
[2022-04-20] MEDS ORDERED: predniSONE 20 MG TAB PO SCH (07:00)
[2022-04-20 07:57] VITALS: BP 104/54
[2022-04-20] MEDS ORDERED: PRED10TA22 PO (07:59)
[2022-04-20] MEDS: DOCUSATE SODIUM 100 MG (COLACE) CAP PO SCH (08:35)
[2022-04-20] MEDS: SENNOSIDES 8.6 MG (SENOKOT) TAB PO SCH (08:35)
[2022-04-20] MEDS ORDERED: PANTOPRAZOLE 40 MG (PROTONIX) TAB PO SCH (09:00)
[2022-04-20 11:49] VITALS: BP 107/60
[2022-04-20] MEDS ORDERED: PANT40TA52 PO (12:01)
[2022-04-20] MEDS ORDERED: IPRA3AMP31 IH (12:01)
[2022-04-20 14:10] VITALS: BP 107/60
--- NOTE | 2022-04-20 14:21 | Discharge Summary ---
JACKLYN ROSADOEB 04/20/22 1421: Diagnosis/Chief Complaint Date of Admission Apr 18, 2022 at 03:40 Date of Discharge Apr 20, 2022 at 14:10 Discharge Date: Apr 20, 2022 Admission Diagnosis Acute COPD exacerbation Primary Care Isidoro Mi MD Discharge Diagnosis (1) Acute exacerbation of chronic obstructive pulmonary disease (COPD) Status: Acute (2) Acute respiratory failure with hypoxia Status: Acute (3) Pulmonary cachexia due to COPD Status: Acute (4) Tobacco dependence Status: Acute Discharge Summary Discharge Physical Exam Allergies: Coded Allergies: No Known Drug Allergies (Unverified , 01/27/16) Vitals & I&Os Vital Signs Date Time Temp Pulse Resp B/P (MAP) Pulse Ox O2 Delivery O2 Flow Rate FiO2 04/20/22 14:10 36.7 85 18 107/60 96 Nasal Cannula 1.50 98 Hospital Course Sharri Zaidi is a 61yo female with a past medical history of hypothyroidism and superficial thrombophlebitis whom presented to ED due to SOB. 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 Pt is a previous smoker, but has stopped since last hospital visit and currently uses nicotine patches. Pt was admitted to ICU and is on 3L oxygen NC w/ saturation of 98%. Pt was then transferred to the floor and as her oxygen requirement started to decrease. Pt is indicated for home oxygen per home oxygen assessment. Pt is being discharged today w/ home oxygen, oral steroids, and protonix. Labs (last 24 hrs) Laboratory Tests 04/19/22 15:13: Glucometer 159H 04/19/22 20:38: Glucometer 129H 04/20/22 05:13: White Blood Count 16.3H, Red Blood Count 3.91, Hemoglobin 12.3, Hematocrit 37, Mean Corpuscular Volume 94, Mean Corpuscular Hemoglobin 32, Mean Corpuscular Hemoglobin Concent 33, Red Cell Distribution Width 14.9H, Platelet Count 220, Mean Platelet Volume 10.6, Immature Granulocyte % (Auto) 0, Neutrophils (%) (Auto) 82H, Lymphocytes (%) (Auto) 13, Monocytes (%) (Auto) 5, Eosinophils (%) (Auto) 0, Basophils (%) (Auto) 0, Neutrophils # (Auto) 13.3H, Lymphocytes # (Auto) 2.1, Monocytes # (Auto) 0.9, Eosinophils # (Auto) 0.0, Basophils # (Auto) 0.0, Immature Granulocyte # (Auto) 0.1, Sodium Level 139, Potassium Level 3.8, Chloride Level 107, Carbon Dioxide Level 24, Anion Gap 8, Blood Urea Nitrogen 15, Creatinine 0.71, Estimat Glomerular Filtration Rate 97, BUN/Creatinine Ratio 21, Glucose Level 87, Calcium Level 9.0, Corrected Calcium 9.6, Phosphorus Level 3.9, Magnesium Level 2.1, Total Bilirubin 0.3, Aspartate Amino Transf (AST/SGOT) 23, Alanine Aminotransferase (ALT/SGPT) 19, Alkaline Phosphatase 49, Total Protein 5.5L, Albumin 3.3 04/20/22 05:20: Glucometer 84 04/20/22 11:19: Glucometer 147H Microbiology 04/18/22 MRSA Screen - Final, Complete MRSA not isolated 04/18/22 Blood Culture - Preliminary, Resulted No growth Patient resulted labs reviewed. Pending Labs Laboratory Tests 04/20/22 11:19: Glucometer 147 Imaging: Reviewed Imaging Films, Reviewed Imaging Report Discharge Home Medications: Active Scripts Active Iprat-Albut 0.5-3(2.5) mg/3 ml (Ipratropium/Albuterol Sulfate) 0.5 Mg-3 Mg (2.5 Mg Base)/3 Ml Ampul.neb 3 Ml IH Q6H PRN 7 Days Pantoprazole Sodium 40 Mg Tablet.dr 40 Mg PO DAILY 30 Days Prednisone 10 Mg Tab.ds.pk 10 Mg PO DAILY Take 6 tabs(60mg)daily,decrease by 1 tab(10mg)every other day. Reported Multivitamin 1 Each Tablet 1 Each PO DAILY Ibuprofen 200 Mg Capsule 400-600 Mg PO Q8H PRN Anoro Ellipta 62.5-25 Mcg INH (Umeclidinium Brm/Vilanterol Tr) 62.5 Mcg-25 Mcg/Actuation Blst.w.dev 1 Puff IH DAILY Nicotine Patch (Nicotine) 14 Mg/24 Hour Patch.td24 14 Mg TD DAILY Ventolin Hfa (Albuterol Sulfate) 1 Puff Puff 2 Puff INH Q4H PRN Levothyroxine Sodium 75 Mcg Tablet 75 Mcg PO DAILY LAST FILLED 02-24-2022 # DAY SUPPLY Aspirin EC (Aspirin) 81 Mg Tablet.dr 81 Mg PO DAILY Instructions to patient/family Please see electronic discharge instructions given to patient. Copy Copies To 1: [facility]/PRANAV CHA MD 04/20/22 1750: Diagnosis/Chief Complaint Discharge Time: 14:00 Discharge Diagnosis (1) Acute exacerbation of chronic obstructive pulmonary disease (COPD) Status: Acute (2) Acute respiratory failure with hypoxia Status: Acute (3) Pulmonary cachexia due to COPD Status: Acute (4) Tobacco dependence Status: Acute Discharge Summary Discharge Physical Exam Allergies: Coded Allergies: No Known Drug Allergies (Unverified , 01/27/16) General Appearance: No Apparent Distress, Chronically ill, Cachetic Respiratory: No Respiratory Distress, Decreased Breath Sounds Cardiovascular: Regular Rate, Rhythm, No Murmur Gastrointestinal: Normal Bowel Sounds, Soft Extremity: Normal Inspection, No Pedal Edema Skin: Normal Color, Warm/Dry Neurologic/Psychiatric: Alert, Normal Mood/Affect Hospital Course Julisa Zaidi is a 61 year old female with COPD and tobacco abuse who was admitted with acute COPD exacerbation. She was treated with steroids and breathing treatments. Her shortness of breath improved. She was still requiring oxygen with exertion and she was set up with home oxygen. She was given Duonebs and a steroid taper. She was given Protonix for acid reflux. She was discharged home in stable condition. She should quit smoking. She should follow up with [facility] at her appointment to establish care on April 30. Imaging: Reviewed Imaging Report Discussion & Recommendations Discharge Planning: >30 minutes discharge planning Copy Copies To 1: [facility] Supervisory-Addendum Brief Verification & Attestation Participated in pt care: history, MDM, physical Personally performed: exam, history, MDM, supervision of care Care discussed with: Medical Student Procedures: n/a Results interpretation: Verified all documentation A medical student performed and documented this service in my presence. I reviewed and verified all information documented by the medical student and made modifications to such information, when appropriate. I personally performed the physical exam and medical decision making. ISAIAH ROSADO Apr 20, 2022 14:21 PRANAV ROBERTO MD Apr 20, 2022 17:50
== END 2022-04-20 14:10 | disposition home or self-care (01) | DRG 189 ==
LOC: EDUNIT# 02:53 → ER 02:54 → ICU 03:40 → 4TH 04-19 11:05
PROVIDERS: ADMIT Internal Medicine; ATTEND Internal Medicine
PROC: 5A09357 Assistance with Respiratory Ventilation, Less than 24 Consecutive Hours, Continuous Positive Airway Pressure (ICD-10-PCS; principal; 2022-04-18)
DX: J96.01 Acute respiratory failure with hypoxia (principal); J44.1 Chronic obstructive pulmonary disease with (acute) exacerbation; E87.20 Acidosis, unspecified; R64 Cachexia; Z68.1 Body mass index [BMI] 19.9 or less, adult; E03.9 Hypothyroidism, unspecified; I80.9 Phlebitis and thrombophlebitis of unspecified site; F17.210 Nicotine dependence, cigarettes, uncomplicated; K21.9 Gastro-esophageal reflux disease without esophagitis; Z79.82 Long term (current) use of aspirin; Z79.890 Hormone replacement therapy; Z79.899 Other long term (current) drug therapy; Z20.822 Contact with and (suspected) exposure to COVID-19
CPT/HCPCS: 36415; 71045; 80053; 82805; 82947; 83605; 83735; 84100; 84484; 85007; 85025; 85027; 85610; 85730; 87040; 87081; 87636; 93005; 94640; 94660; 94664; 94761; 96361; 96372; 96374; 96375; 96376; G0378

== ENCOUNTER → 2022-06-04 | Outpatient (CLI) | payer OTHER ==
[~2022-06-04] MED LIST changes: +MULT-1136 PO; +PANT40TA52 PO; +RT-ALBUTEROL SULF 2.5 MG/3 ML PRE-MIX VIAL INH ONE
== END ==
LOC: RT 13:39
PROVIDERS: ATTEND Nurse Practitioner Family
DX: J44.9 Chronic obstructive pulmonary disease, unspecified (principal)
CPT/HCPCS: 94060; 94726; 94729

== ENCOUNTER 2022-07-25 20:33 | Outpatient (CLI) | payer OTHER ==
[~2022-07-25 20:33] MED LIST changes: -RT-ALBUTEROL SULF 2.5 MG/3 ML PRE-MIX VIAL INH ONE
== END 2022-07-26 06:30 | disposition home or self-care (01) ==
LOC: SLEEP 20:33
PROVIDERS: ATTEND Nurse Practitioner Family
DX: G47.34 Idiopathic sleep related nonobstructive alveolar hypoventilation (principal); G47.19 Other hypersomnia; G47.10 Hypersomnia, unspecified; J44.9 Chronic obstructive pulmonary disease, unspecified; R91.1 Solitary pulmonary nodule; Z87.09 Personal history of other diseases of the respiratory system; Z87.891 Personal history of nicotine dependence
CPT/HCPCS: 95810

== ENCOUNTER → 2022-11-07 | Outpatient (CLI) | payer OTHER ==
[2022-11-07 11:24] VITALS: BP 132/73
== END ==
LOC: CARD 10:45
PROVIDERS: ATTEND Physician Assistant
DX: R06.09 Other forms of dyspnea (principal)
CPT/HCPCS: 93017

== ENCOUNTER → 2022-11-12 | Outpatient (CLI) | payer OTHER ==
[~2022-11-12] MED LIST changes: +RT-ALBUTEROL SULF 2.5 MG/3 ML PRE-MIX VIAL INH ONE
[2022-11-12 09:31] VITALS: BP 132/73
--- NOTE | 2022-11-12 09:31 | Cardiology Stress Test Report ---
Stress Test Report Date of Procedure/Referring: Date of Procedure: Nov 07, 2022 PCP Lilliana Friend Aprn Admitting Physician Admitting Physician: Attending Physician: Dorothy Thomas DO Baseline Heart Rate: 66 Baseline Blood Pressure: Blood Pressure Systolic: 132 Blood Pressure Diastolic: 73 Baseline EKG: Baseline EKG: NSR Summary/Conclusion: Summary: In summary, the patient started exercising with a baseline heart rate, blood pressure and EKG mentioned above Patient was able to exercise for a total of 8.40 minutes on Seymour protocol, METs 10.3 Maximum heart rate 131 Maximum blood pressure 177/56 Stress EKG, Minimal nondiagnostic changes Recovery EKG , Return to baseline Conclusion: 1. Good exercise tolerance for a total of 8.40 minutes on Seymour protocol, 10.3 METs, achieving 82 percent of maximum expected heart rate 2. Minimal nondiagnostic EKG changes with exercise returned to baseline during recovery 3. No arrhythmia was noted Copy Copies To 1: [facility]/JOCELYN DIXON MD Nov 12, 2022 09:31
== END ==
LOC: RT 07:50
PROVIDERS: ATTEND Family Medicine
DX: Z02.71 Encounter for disability determination (principal); J44.9 Chronic obstructive pulmonary disease, unspecified; J96.90 Respiratory failure, unspecified, unspecified whether with hypoxia or hypercapnia; R91.8 Other nonspecific abnormal finding of lung field
CPT/HCPCS: 94060; 94729